=== PATIENT | female | born 2000 | race Caucasian/White ===

== ENCOUNTER 2022-06-03 03:13 | Inpatient (IN) ==
[2022-06-03 04:57] LABS: Basophils # (auto) 0.05 K/uL (0-0.2); Basophils % (auto) 0.7 %; Eosinophils % (auto) 2.9 %; Hematocrit (blood only) 35.3 % (34.1-44.9); Hemoglobin 12.3 g/dl (12.0-16.0); Immature Granulocytes # (auto) 0.01 K/uL (0.00-0.02); Immature Granulocytes % (auto) 0.1 %; Lymphocytes # (auto) 2.97 K/uL (1.2-3.4); Lymphocytes % (auto) 42.6 %; Mean Corpuscular Hemoglobin 32.5 pg (25.0-34.0); Mean Corpuscular Hgb Conc 34.8 g/dL (32.0-36.0); Mean Corpuscular Volume 93.4 fL (80.0-100.0); Mean Platelet Volume 9.6 fL (9.4-12.3); Monocytes # (auto) 0.53 K/uL (0.24-0.82); Monocytes % (auto) 7.6 %; Neutrophils # (auto) 3.21 K/uL (1.4-6.5); Neutrophils % (auto) 46.1 %; Platelet Count 261 K/uL (130-400); RDW Coefficient of Variation 12.5 % (11.5-14.5); RDW Standard Deviation 42.3 fL (36.4-46.3); Red Blood Count 3.78 M/uL (3.93-5.22); White Blood Count 6.97 K/ul (4.8-10.8)
[2022-06-03 05:04] LABS: Pregnancy Test, Urine Negative (Negative)
[2022-06-03 05:07] LABS: Acetaminophen < 3 ug/ml (10-30); Albumin Globulin Ratio 1.3 (0.9-2); Albumin Level 4.4 gm/dl (3.4-5.0); Bilirubin,Total 0.7 mg/dl (0.2-1.0); Calcium 8.9 mg/dl (8.5-10.1); Creatinine Clr Calc Pharmacy 73.6 ml/min; Est GFR (African American) 103.9 ml/min; Est GFR (Non-African American) 89.6 ml/min; Globulin 3.4 gm/dl (2.5-4.0); Potassium 3.4 mmol/L (3.5-5.1); Salicylate < 3.0 mg/dl (3.0-30); Total Protein 7.8 gm/dl (6.0-8.3)
--- NOTE | 2022-06-03 06:57 | Emergency Department Note ---
Impression & Plan Suicide attempt by drug overdose, Alcohol intoxication, Self-injurious behavior Case was signed out to doctor Muriel awaiting psychiatric evaluation ED Provider Note NAME: MAXWELL MONTES AGE: 21 SEX: F ARRIVES VIA: Ambulance INFORMANT: Patient ED PROVIDER(S): Gayathri Moraes DO CHIEF COMPLAINT: Intentional Ooverdose PLAN: Disposition: The case will be signed out to Dr. Llamas at change of shift Condition: Stable MEDICAL DECISION MAKING: This is a 21-year-old female patient who took an intentional overdose in a suicide attempt. The patient took over 100 mg of Lexapro and drank alcohol. Patient used a knife to cut her right wrist multiple times. Patient admits to benito barnhart. She denies any specific trigger for this overdose. She does not have a therapist or see a psychiatrist. She has had 1 previous overdose attempt. The patient will be medically cleared at 9 AM and will be evaluated by the ED psychiatric touring production manager. She has a 302 petitioned by the police but is willing to sign herself in voluntarily for inpatient psychiatric care. The case will be signed out to the oncoming physician. Triage Nursing notes reviewed and agree with them. Vital Signs: reviewed and remarkable for no significant abnormalities Differential diagnosis: Alcohol intoxication, intentional overdose, suicide attempt, self-mutilation Diagnostics interpreted by me: ECG: Normal sinus rhythm at a rate of [address] segment elevation or signs of ischemia. Cardiac Monitoring: Sinus bradycardia at a rate of 59 Laboratory studies: See below Consultation: Poison Control Center HPI: 21/F arrives for evaluation of overdose. The patient describes a constant level of depression but drank some alcohol tonight and became increasingly d epressed and took an overdose of her Lexapro. She describes taking approximately 20 tabs which was close to 100 mg of the Lexapro. She has a previous history of overdose attempt by taking her mother's blood pressure medication when she was a garrett in high school. ROS: See above HPI for pertinent positives & negatives. A total of 10 systems reviewed and were otherwise negative. PAST MEDICAL HISTORY:Depression PAST SURGICAL HISTORY:See Below FAMILY HISTORY:See Below SOCIAL HISTORY:The patient is a student at [employer] and plays soccer; she admits to alcohol and marijuana use. HOME MEDICATIONS:See list ALLERGIES:None VITALS:See Below PHYSICAL EXAMINATION: HEENT: Head - normocephalic and atraumatic. Pupils are equal, round, and reactive to light. Extraocular eye muscles are intact, and sclera are anicteric. Nose - moist nasal mucosa without discharge. Mouth - moist buccal mucosa. Oropharynx is nonerythematous and there is no tonsillar exudate or edema noted. Neck: Supple; no cervical lymphadenopathy or nuchal rigidity Heart: Regular rate and rhythm. There is a normal S1 and S2 with no murmurs, clicks, or gallops appreciated. Lungs: Clear to auscultation bilaterally with no wheezes, rales, or rhonchi. Abdomen: Soft, completely nontender, nondistended, with good bowel sounds. There are no palpable pulsatile masses or hepatosplenomegaly. There is no guarding, rigidity, or rebound noted. Extremities: No evidence of cyanosis, clubbing, or edema. There are easily palpable peripheral pulses. Skin: warm and dry with good turgor and no rashes. Psych: The patient appears depressed with a flat affect. She admits to being s uicidal and attempted to kill herself. taking an overdose of Lexapro and alcohol. ED COURSE: Times/Reassessments: 0345: The patient was evaluated in room C4. A complete history and physical was performed. Laboratory studies were drawn as above. An order was placed for continuous cardiac monitoring. The patient was in a sinus bradycardia at a rate of 59. The patient will be watched closely until she is sober and the effects of the Lexapro have worn off and then she will be evaluated by our ED psychiatric touring production manager. She will require inpatient psychiatric care for attempted suicide. Patient gave me permission to discuss the case with her parents. I did contact her father by phone and the patient's mother was on her way here. Once the patient's mother arrived at the bedside, I discussed the case with her and the patient. Gayathri Moraes, DO Past Med/Surg History Medical History No significant past medical history Social History Smoking Status: Current some day smoker Tobacco Type: E-cigarettes / Vaping Preferred Language: Albanian Feels Safe at Home: Yes Allergies Allergies Allergy/AdvReac Type Severity Reaction Status Date / Time No Known Allergies Allergy Verified 06/03/22 13:31 Home Meds Home Medications Medication Instructions Recorded Confirmed escitalopram oxalate 5 mg tablet 5 mg PO DAILY 06/03/22 06/03/22 Previous Rx's Medication Instructions Recorded mupirocin 2 % topical ointment 1 applic topical BID #22 grams 05/23/22 Results & Data (ED) Vital Signs Vital Signs - 24 hr 06/03/22 03:22 06/03/22 03:40 06/03/22 04:32 Temperature 36.7 C Temperature Source Temporal Artery Scan Pulse Rate 61 70 57 L Pulse Rate [Apical] Pulse Rate from SpO2 Sensor Pulse Rhythm Regular Pulse Rhythm [Apical] Pulse Strength [Apical] Respiratory Rate 16 20 22 Respiratory Effort / Characteristics Non-Labored Spontaneous Respiratory Depth Normal Respiratory Pattern Regular Blood Pressure 134/84 134/84 Blood Pressure [Right Arm] Blood Pressure Mean 100 100 Blood Pressure Mean [Right Arm] Blood Pressure Position [Right Arm] Pulse Oximetry 98 97 95 Oxygen Delivery Method Room Air Room Air Room Air Sepsis Recent Fever Within 48 Hours No Sepsis New/Unexplained Change in Mental Status No Sepsis Action Taken by Nursing No Action Required 06/03/22 04:33 06/03/22 06:13 06/03/22 05:00 Temperature Temperature Source Pulse Rate 59 L Pulse Rate [Apical] 57 L 61 Pulse Rate from SpO2 Sensor 60 Pulse Rhythm Pulse Rhythm [Apical] Pulse Strength [Apical] Respiratory Rate 23 21 22 Respiratory Effort / Characteristics Non-Labored Spontaneous Non-Labored Spontaneous Respiratory Depth Normal Normal Respiratory Pattern Regular Regular Blood Pressure Blood Pressure [Right Arm] 103/67 Blood Pressure Mean Blood Pressure Mean [Right Arm] 79 Blood Pressure Position [Right Arm] Left Lateral Pulse Oximetry 95 95 94 Oxygen Delivery Method Room Air Room Air Room Air Sepsis Recent Fever Within 48 Hours Sepsis New/Unexplained Change in Mental Status Sepsis Action Taken by Nursing 06/03/22 06:00 06/03/22 06:13 06/03/22 08:00 Temperature Temperature Source Pulse Rate 53 L 59 L Pulse Rate [Apical] 62 Pulse Rate from SpO2 Sensor 54 L 60 Pulse Rhythm Pulse Rhythm [Apical] Regular Pulse Strength [Apical] Normal Respiratory Rate 21 22 18 Respiratory Effort / Characteristics Non-Labored Respiratory Depth Normal Respiratory Pattern Regular Blood Pressure 103/67 Blood Pressure [Right Arm] 130/87 Blood Pressure Mean 79 Blood Pressure Mean [Right Arm] 101 Blood Pressure Position [Right Arm] Lying Pulse Oximetry 95 95 96 Oxygen Delivery Method Room Air Room Air Sepsis Recent Fever Within 48 Hours Sepsis New/Unexplained Change in Mental Status Sepsis Action Taken by Nursing Laboratory Data Result diagrams: 06/03/22 03:33 06/03/22 03:33 Lab Results 06/03/22 06/03/22 06/03/22 Range/Units 03:33 03:33 03:33 WBC 6.97 (4.8-10.8) K/ul RBC 3.78 L (3.93-5.22) M/uL Hgb 12.3 (12.0-16.0) g/dl Hct 35.3 (34.1-44.9) % MCV 93.4 (80.0-100.0) fL MCH 32.5 (25.0-34.0) pg MCHC 34.8 (32.0-36.0) g/dL RDW Std Deviation 42.3 (36.4-46.3) fL RDW Coeff of Khalif 12.5 (11.5-14.5) % Plt Count 261 (130-400) K/uL MPV 9.6 (9.4-12.3) fL Immature Gran % (Auto) 0.1 % Neut % (Auto) 46.1 % Lymph % (Auto) 42.6 % Potter % (Auto) 7.6 % Eos % (Auto) 2.9 % Baso % (Auto) 0.7 % Neut # (Auto) 3.21 (1.4-6.5) K/uL Lymph # (Auto) 2.97 (1.2-3.4) K/uL Potter # (Auto) 0.53 (0.24-0.82) K/uL Eos # (Auto) 0.20 (0-0.50) K/uL Baso # (Auto) 0.05 (0-0.2) K/uL Immature Gran # (Auto) 0.01 (0.00-0.02) K/uL Sodium 142 (136-145) mmol/L Potassium 3.4 L (3.5-5.1) mmol/L Chloride 107 (98-107) mmol/L Carbon Dioxide 28 (21-32) mmol/L Anion Gap 7 (3-11) BUN 11 (6-23) mg/dl Creatinine 0.92 (0.6-1.2) mg/dl Est Cr Clr Drug Dosing 73.6 ml/min Est GFR ( Amer) 103.9 ml/min Est GFR (Non-Af Amer) 89.6 ml/min BUN/Creatinine Ratio 12.0 (10-20) Glucose 88 (70-99(Fasting)) mg/dl Calcium 8.9 (8.5-10.1) mg/dl Total Bilirubin 0.7 (0.2-1.0) mg/dl AST 37 (13-39) U/L ALT 23 (7-52) U/L Alkaline Phosphatase 49 (34-104) U/L Total Protein 7.8 (6.0-8.3) gm/dl Albumin 4.4 (3.4-5.0) gm/dl Globulin 3.4 (2.5-4.0) gm/dl Albumin/Globulin Ratio 1.3 (0.9-2) TSH (0.300-4.500) uIu/ml Urine Test (Negative) Salicylates < 3.0 L (3.0-30) mg/dl Urine Opiates Screen (Neg) Ur Methadone, Qual (Neg) Acetaminophen < 3 L (10-30) ug/ml Urine Barbiturates (Neg) Ur Phencyclidine (PCP) (Neg) U Amphetamin/Meth Scrn (Neg) MDMA (Ecstasy) Screen (Neg) U Benzodiazepines Scrn (Neg) Ur Cocaine Metabolite (Neg) U Marijuana (THC) Screen (Neg) Ethyl Alcohol mg/dL (<10.0) mg/dl SARS-CoV-2, RNA, NAAT (NEGATIVE) 06/03/22 06/03/22 06/03/22 Range/Units 03:33 03:33 04:29 WBC (4.8-10.8) K/ul RBC (3.93-5.22) M/uL Hgb (12.0-16.0) g/dl Hct (34.1-44.9) % MCV (80.0-100.0) fL MCH (25.0-34.0) pg MCHC (32.0-36.0) g/dL RDW Std Deviation (36.4-46.3) fL RDW Coeff of Khalif (11.5-14.5) % Plt Count (130-400) K/uL MPV (9.4-12.3) fL Immature Gran % (Auto) % Neut % (Auto) % Lymph % (Auto) % Potter % (Auto) % Eos % (Auto) % Baso % (Auto) % Neut # (Auto) (1.4-6.5) K/uL Lymph # (Auto) (1.2-3.4) K/uL Potter # (Auto) (0.24-0.82) K/uL Eos # (Auto) (0-0.50) K/uL Baso # (Auto) (0-0.2) K/uL Immature Gran # (Auto) (0.00-0.02) K/uL Sodium (136-145) mmol/L Potassium (3.5-5.1) mmol/L Chloride (98-107) mmol/L Carbon Dioxide (21-32) mmol/L Anion Gap (3-11) BUN (6-23) mg/dl Creatinine (0.6-1.2) mg/dl Est Cr Clr Drug Dosing ml/min Est GFR ( Amer) ml/min Est GFR (Non-Af Amer) ml/min BUN/Creatinine Ratio (10-20) Glucose (70-99(Fasting)) mg/dl Calcium (8.5-10.1) mg/dl Total Bilirubin (0.2-1.0) mg/dl AST (13-39) U/L ALT (7-52) U/L Alkaline Phosphatase (34-104) U/L Total Protein (6.0-8.3) gm/dl Albumin (3.4-5.0) gm/dl Globulin (2.5-4.0) gm/dl Albumin/Globulin Ratio (0.9-2) TSH 0.970 (0.300-4.500) uIu/ml Urine Test (Negative) Salicylates (3.0-30) mg/dl Urine Opiates Screen (Neg) Ur Methadone, Qual (Neg) Acetaminophen (10-30) ug/ml Urine Barbiturates (Neg) Ur Phencyclidine (PCP) (Neg) U Amphetamin/Meth Scrn (Neg) MDMA (Ecstasy) Screen (Neg) U Benzodiazepines Scrn (Neg) Ur Cocaine Metabolite (Neg) U Marijuana (THC) Screen (Neg) Ethyl Alcohol mg/dL 173.9 H (<10.0) mg/dl SARS-CoV-2, RNA, NAAT NEGATIVE (NEGATIVE) 06/03/22 06/03/22 Range/Units 04:52 04:52 WBC (4.8-10.8) K/ul RBC (3.93-5.22) M/uL Hgb (12.0-16.0) g/dl Hct (34.1-44.9) % MCV (80.0-100.0) fL MCH (25.0-34.0) pg MCHC (32.0-36.0) g/dL RDW Std Deviation (36.4-46.3) fL RDW Coeff of Khalif (11.5-14.5) % Plt Count (130-400) K/uL MPV (9.4-12.3) fL Immature Gran % (Auto) % Neut % (Auto) % Lymph % (Auto) % Potter % (Auto) % Eos % (Auto) % Baso % (Auto) % Neut # (Auto) (1.4-6.5) K/uL Lymph # (Auto) (1.2-3.4) K/uL Potter # (Auto) (0.24-0.82) K/uL Eos # (Auto) (0-0.50) K/uL Baso # (Auto) (0-0.2) K/uL Immature Gran # (Auto) (0.00-0.02) K/uL Sodium (136-145) mmol/L Potassium (3.5-5.1) mmol/L Chloride (98-107) mmol/L Carbon Dioxide (21-32) mmol/L Anion Gap (3-11) BUN (6-23) mg/dl Creatinine (0.6-1.2) mg/dl Est Cr Clr Drug Dosing ml/min Est GFR ( Amer) ml/min Est GFR (Non-Af Amer) ml/min BUN/Creatinine Ratio (10-20) Glucose (70-99(Fasting)) mg/dl Calcium (8.5-10.1) mg/dl Total Bilirubin (0.2-1.0) mg/dl AST (13-39) U/L ALT (7-52) U/L Alkaline Phosphatase (34-104) U/L Total Protein (6.0-8.3) gm/dl Albumin (3.4-5.0) gm/dl Globulin (2.5-4.0) gm/dl Albumin/Globulin Ratio (0.9-2) TSH (0.300-4.500) uIu/ml Urine Test Negative (Negative) Salicylates (3.0-30) mg/dl Urine Opiates Screen Neg (Neg) Ur Methadone, Qual Neg (Neg) Acetaminophen (10-30) ug/ml Urine Barbiturates Neg (Neg) Ur Phencyclidine (PCP) Neg (Neg) U Amphetamin/Meth Scrn Neg (Neg) MDMA (Ecstasy) Screen Neg (Neg) U Benzodiazepines Scrn Neg (Neg) Ur Cocaine Metabolite Neg (Neg) U Marijuana (THC) Screen Pos H (Neg) Ethyl Alcohol mg/dL (<10.0) mg/dl SARS-CoV-2, RNA, NAAT (NEGATIVE) Administered Medications Discontinued Medications Miscellaneous Information (Patient's Allergy Info Needs Entered) 1 each N/A Q2H [place] Stop: 07/03/22 13:29 Last Admin: 06/03/22 13:30 Dose: 1 each Documented By: HNB Discharge Plan Visit Data Chief Complaint: Mental Health Evaluation Stated Complaint: OVERDOSE ED Provider: Matthew Llamas Discharge Problem: Suicide attempt by drug overdose, Alcohol intoxication, Self-injurious behavior Patient Disposition: Admitted As Inpatient Discharge Instructions Interventions: ED Discharge Assessment Last Done: 06/03/22 14:33 : Alcohol intoxication Qualifiers: Complication of substance-induced condition: with unspecified complication Qualified Code(s): F10.929 - Alcohol use, unspecified with intoxication, un specified
--- NOTE | 2022-06-03 08:50 | Emergency Department Note ---
ED Visit Note The patient was taken in signout from Dr. Moraes at the change of shift. Please see that note for details. The patient was pending mental health evaluation after SI with overdose. Patient was evaluated by [facility]. She was excepted voluntarily for inpatient treatment. .
[2022-06-03 10:49] LABS: Amphetamines+Metham, Urine Neg (Neg); Barbiturates, Urine Neg (Neg); Benzodiazepine, Urine Neg (Neg); Cocaine, Urine Neg (Neg); MDMA (Ecstacy), Urine Neg (Neg); Methadone, Urine Neg (Neg); Opiate, Urine Neg (Neg); Phencyclidine, Urine Neg (Neg)
[2022-06-03] MEDS ORDERED: MAGNESIUM HYDROXIDE SUSP 30 ML UDC PO PRN (13:03)
[2022-06-03] MEDS ORDERED: hydrOXYzine HCl 25 MG TAB PO PRN ×2 (13:03)
[2022-06-03] MEDS ORDERED: BISMUTH SUBSALICYLATE LIQD 236 ML PO PRN (13:03)
[2022-06-03] MEDS ORDERED: SODIUM CHLORIDE 0.65% NA SOLN 45 ML (OCEAN) PRN (13:03)
[2022-06-03] MEDS ORDERED: ALUMINUM/MAGNESIUM SUSP 30 ML UDC PO PRN (13:03)
[2022-06-03] MEDS ORDERED: ACETAMINOPHEN 325 MG TAB PO PRN (13:03)
[2022-06-03] MEDS ORDERED: Patient's ALLERGY Info needs ENTERED SCH (13:30)
--- NOTE | 2022-06-03 23:03 | Electrocardiogram Report ---
Test Reason : Blood Pressure : / mmHG Vent. Rate : 061 BPM Atrial Rate : 061 BPM P-R Int : 158 ms QRS Dur : 082 ms QT Int : 460 ms P-R-T Axes : 075 083 060 degrees QTc Int : 463 ms Poor data quality, interpretation may be adversely affected Normal sinus rhythm with sinus arrhythmia Normal ECG No previous ECGs available Confirmed by Jim Metzger ([id number]) on 06/03/2022 11:03:10 PM Referred By: Confirmed By:Jim Metzger
--- NOTE | 2022-06-04 09:44 | History & Physical ---
Date of Service June 04, 2022 Impression / Recommendations Leny Figueredo is a 21 yo female with a history of depression who presents with recurrent SI and recent SIB while binge drinking who presents s/p significant Lexapro ingestion. (1) Major depression: (2) Suicide attempt by drug overdose: (3) Self-injurious behavior: (4) Alcohol abuse: Plan The patient was admitted to the [facility] ([facility]) on q15 min checks (behavioral with suicide precautions) for safety. The patient will participate in group, recreational, and milieu therapies and will be offered additional individual and family sessions as clinically appropriate. She is still having residual effects of OD so will not address another antidepressant trial until tomorrow, Vistaril prn as standard. Brief intervention for alcohol abuse as above. Inventory Assets Strengths: intelligent, active Needs: outpatient therapy, decrease alcohol use Suicide Risk Level Suicide Risk Level: High-Moderate (q15 min suicide checks) Risk Factors Assessment : Yes Do You Have Access To A Gun?: No Health Problems: No Mental Health Diagnoses: Yes Previous Attempt: Yes Previous Psychiatric Hospitalization: No Protective Factors Assessment Employed: No Stable Relationships: Yes Supportive Family: Yes Psychiatric History Identifying Data MAXWELL MONTES is a 21-year-old F, [employer] from [employer], has a history of a suicide attempt in high school, and was admitted on 06/03/22 13:03 on a 201 voluntary commitment s/p Lexapro OD. Chief Complaint 100 mg of Lexapro while intoxicated History of Present Illness Patient presented to ED s/p Lexapro OD, reportedly impulsive during an argument with a roommate. She also has a history of SIB and had made some superficial cuts on her legs 2 days prior. 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 Sleep and appetite has been disrupted in that utilizing 100 mg Bendadryl. She has a strong family hx of ED and in fact her twin sister did inpatient ED treatment last year at this exact same time. She denies a history of heide but does report some possible disinhibition while drinking. She denies related to SSRI with medication as "when I'm in a good mood it's not an issue" but she does drink repeatedly recently to "Must black out" and will then make comments about self harm. This has occurred several times at home as well and resulted in her mother calling the police once during an argument. As far as ongoing resolution of her OD she felt very jittery yesterday and is still having some hand tremor but denies N/V/D/LLOYD, etc. Past Psychiatric History Previous Psych History: [facility] in [facility]--only attended 2 sessions? Current Psychiatric Diagnosis: MDD Outpatient Services: meds per PCP office Previous Psych Admissions: none Do You Have Access To A Gun?: No History of Previous Suicide Attempt: Yes (OD on mom's BP meds as a teen, only recently disclosed) Past Medication Trials: Lexapro since summer, Benadryl Past Head Trauma/Neuro History History of Concussion/Seizure: Yes (high school soccer, denies postconcussive synd) Allergies Allergy/AdvReac Type Severity Reaction Status Date / Time No Known Allergies Allergy Verified 06/03/22 13:31 Home Medications Medication Instructions Recorded Confirmed Type mupirocin 2 % topical ointment 1 applic topical BID #22 grams 05/23/22 Rx escitalopram oxalate 5 mg tablet 5 mg PO DAILY 06/03/22 06/03/22 History Family History Family History of: Depression (2 sisters on antidepressants with ED as well) and Anxiety (believes father has OCD) Family Mental Health History Comment: Uncle had severe eating disorder and from drug/alochol use at age of 33 when patient was a sophmore in highschool. Alcohol History Hx of Alcohol Use Over the Past 12 Months: Yes (beer/liqour every weekend, last ingestion 06/02) AUDIT Total Score: 16 The patient's AUDIT score suggests problematic drinking ([place] WHO). Brief intervention was offered and accepted. Intervention was greater than 5 min in length and included assessing readiness to quit, advice on how to reduce or abstain from alcohol, and to set a specific goal for this hospitalization. process worker will also assist in anticipating barriers to sobriety and in p roblem-solving for solutions to those problems while arranging for referral to appropriate treatment. The patient is in precontemplation stage with regards to transtheoretical model of change. The patient is advised to decrease alcohol consumption due to depressant effects and risk of interaction with prescription medications. Smoking Use Have You Smoked or Used Tobacco Products in the Last 30 Days: No Smoking Status: Never smoker Substance History Hx of Prescription Med Misuse Over the Past 12 Months: Yes (OD attempt on lexapro 06/02) Hx of Over the Counter Med Misuse Over the Past 12 Months: No Hx of Inhalent Misuse Over the Past 12 Months: No Hx of Organic Substance Use Over the Past 12 Months: Yes (marijuana use ocassionally.) Hx of Illegal Substances/Street Drug Use Over Past 12 Months: No Problems as a Result of Past Substance Use: Attempted Suicide Personal History Living Arrangements: Assisted Living Childhood: twin sister and 2 younger sisters 18 yo (also twins) Highest Grade Completed: Some College (nutrition major) Employment Status: Student Marital Status: Single Number Of Children: 0 Beliefs That Will Affect Care: None Current Legal Problems: No Hx Legal Problems: No Hx Traumatic Life Events: No Patient History Medical History No significant past medical history Social History Smoking Status: Never smoker Tobacco Type: E-cigarettes / Vaping Preferred Language: Estonian Communication Ability: Effective Siding Mechanic Required: No Beliefs That Will Affect Care: None Feels Safe at Home: Yes Assistive Devices: Glasses Review of Systems Review of Systems: All systems reviewed & are unremarkable except as noted in HPI & below Physical Exam Psychiatric: Orientation: alert and oriented x 3 Apperance: appropriately dressed and appropriately groomed Eye Contact: good eye contact Motor Behavior: no abnormal motor movements Speech: normal rate/rhythm/volume of speech Affect: + depressed affect Mood: + depressed mood Thought Process: goal directed thought process Thought Content: reality based without delusions Suicidal Thoughts: denies suicidal plan and denies suicidal intent; + reports suicidal thoughts (intermittent, "I have to get my shit together.") Homicidal Thoughts: denies homicidal thoughts Hallucinations: no auditory hallucinations and no visual hallucinations Cognition: attention grossly intact and language grossly intact Estimated Intelligence: consistent with education level Insight: + limited insight Judgement: + limited judgement Vital Signs (Past 24 Hours): Last Vital Signs Temp 36.7 C 06/04/22 06:30 Pulse 61 06/04/22 06:31 Resp 16 06/04/22 06:30 BP 126/82 06/04/22 06:31 Pulse Ox 99 06/03/22 16:34 O2 Del Method 06/03/22 16:34 Exam Statement: A physical exam was performed in the ED by Dr. Moraes for the purposes of medical clearance. I accept that physical as correct and adequate for the purposes of the inpatient physical exam. Results & Data ([facility]) Laboratory Results Laboratory Results - last 24 hr 06/03/22 06/03/22 04:52 04:52 Urine Opiates Screen Neg Ur Methadone, Qual Neg Urine Barbiturates Neg Ur Phencyclidine (PCP) Neg U Amphetamin/Meth Scrn Neg MDMA (Ecstasy) Screen Neg U Benzodiazepines Scrn Neg Ur Cocaine Metabolite Neg U Marijuana (THC) Screen Pos H U Marijuana THC Carboxy Pending Drug Screen Comment Pending Current Inpatient Medications Current Inpatient Medications: Current Inpatient Medications Acetaminophen (Acetaminophen 325 Mg Tab) 650 mg PO Q4H PRN PRN Reason: Headache or Minor Fever Stop: 07/03/22 13:02 Al Hydrox/Mg Hydrox/Simethicone (Aluminum/Magnesium Susp 30 Ml Udc) 30 ml PO Q4H PRN PRN Reason: GI Upset Stop: 07/03/22 13:02 Bismuth Subsalicylate (Bismuth Subsalicylate Liqd 236 Ml) 15 ml PO PRN PRN PRN Reason: Loose Stool Stop: 07/03/22 13:02 Hydroxyzine HCl (Hydroxyzine Hcl 25 Mg Tab) 50 mg PO HSZ PRN PRN Reason: Insomnia Stop: 07/03/22 13:02 Hydroxyzine HCl (Hydroxyzine Hcl 25 Mg Tab) 25 mg PO Q4H PRN PRN Reason: Anxiety Stop: 07/03/22 13:02 Magnesium Hydroxide (Magnesium Hydroxide Susp 30 Ml Udc) 30 ml PO DAILY PRN PRN Reason: Constipation Stop: 07/03/22 13:02 Sodium Chloride (Sodium Chloride 0.65% Na Soln 45 Ml ([place]rill)) 1 - 2 sprays NA PRN PRN PRN Reason: Nasal Dryness/Congestion Stop: 07/03/22 13:02
[2022-06-05 10:47] LABS: Marijuana Quant, GCMS Urine 23 ng/mL (<5)
--- NOTE | 2022-06-05 12:55 | Psychiatric Progress Note ---
Date of Service June 05, 2022 Impression / Recommendations Impression Bea is a 21 yo female with a history of depression who presents with recurrent SI and recent SIB while binge drinking who presents s/p significant Lexapro ingestion. 06/05/22: reviewed that for now she does not meet criteria for bipolar disorder but does not exclude in differential. Any neuropsych testing should be done as outpatient after she is recovered from this depressive episode. Mother was agreeable with trial of Zoloft and recs as listed. (1) Major depression: (2) Suicide attempt by drug overdose: (3) Self-injurious behavior: (4) Alcohol abuse: Plan 06/05/22: Risks/benefits/alternatives reviewed re: antidepressants for the treatment of depression and/or anxiety. Discussion included but was not limited to FDA warnings re: suicidality in adolescents and young adults. The patient agreed to a trial of Zoloft 25 mg this hs with titration. 06/04/22: The patient was [facility] on q15 min checks (behavioral with suicide precautions) for safety. The patient will participate in group, recreational, and milieu therapies and will be offered additional individual and family sessions as clinically appropriate. She is still having residual effects of OD so will not address another antidepressant trial until tomorrow, Vistaril prn as standard. Brief intervention for alcohol abuse as above. Inventory Assets Strengths: intelligent, active Needs: outpatient therapy, decrease alcohol use Suicide Risk Level Suicide Risk Level: High-Moderate (q15 min suicide checks) Risk Factors Assessment : Yes Do You Have Access To A Gun?: No Health Problems: No Mental Health Diagnoses: Yes Previous Attempt: Yes Previous Psychiatric Hospitalization: No Protective Factors Assessment Employed: No Stable Relationships: Yes Supportive Family: Yes Interval History Identifying Information MAXWELL MONTES is a 21-year-old F, [employer] from [place], has a history of a suicide attempt in high school, and was admitted on 06/03/22 13:03 on a 201 voluntary commitment s/p Lexapro OD. Chief Complaint "I feel some better today." Review of Systems Sleep Information Total Hours of Sleep: 8.75 Meal Information Percent Meal Consumed - Breakfast: 90 Percent Meal Consumed - Lunch: 80 Percent Meal Consumed - Dinner: 70 Nutrition Comment: Refused to get out of bed to eat but got up late and ate 90 percent Subjective Subjective Patient was seen & assessed and interval progress reviewed with nursing and social work. Slept alot yesterday. Tremor has essentially resolved. Patient to have family meeting today to discuss return home for period of safety/more treatment prior to return to school. I spoke with mother with patient's permission. Mother expressed concerns about possible post concussive/ADHD contributing to presentation if not bipolar spectrum disorder. There is no family hx of bipolar and she does feel patient was "much more even" this summer on Lexapro. She doesn't feel it contributed to the OD but we reviewed potential disinhibiting effects with ETOH and she is aware that patient uses benadryl and MJ for sleep. Sleep issues have been ongoing since onset of menses and denies any periods of clear heide/hypomania but when depressed will sleep/withdraw for several days at a time then "come out of it." She will work out, be away from the house alot so potential increased goal directed behaviors. Has been prescribed Zoloft in the past and a sister does well on it but patient reportedly only took 2 pills so not full trial. She would rather retry than go back on Lexapro given the OD and my discussion of need to make sure not disinhibted with ETOH either way with medication and to avoid sleep aides. Physical Exam Psychiatric Orientation: alert and oriented x 3 Apperance: appropriately dressed and appropriately groomed Eye Contact: good eye contact Motor Behavior: no abnormal motor movements Speech: normal rate/rhythm/volume of speech Affect: + depressed affect Mood: + depressed mood Thought Process: goal directed thought process Thought Content: reality based without delusions Suicidal Thoughts: denies suicidal thoughts, denies suicidal plan and denies suicidal intent Homicidal Thoughts: denies homicidal thoughts Hallucinations: no auditory hallucinations and no visual hallucinations Cognition: attention grossly intact and language grossly intact Estimated Intelligence: consistent with education level Insight: + limited insight Judgement: + limited judgement Vital Signs (Past 24 Hours) Last Vital Signs Temp 36.5 C 06/05/22 06:36 Pulse 60 06/05/22 06:36 Resp 16 06/05/22 06:36 BP 111/67 06/05/22 06:36 Pulse Ox 99 06/03/22 16:34 O2 Del Method 06/03/22 16:34 Results & Data ([facility]) Laboratory Results Laboratory Results - last 24 hr 06/03/22 04:52 U Marijuana THC Carboxy 23 H Drug Screen Comment SEE NOTE Current Inpatient Medications Current Inpatient Medications: Current Inpatient Medications Acetaminophen (Acetaminophen 325 Mg Tab) 650 mg PO Q4H PRN PRN Reason: Headache or Minor Fever Stop: 07/03/22 13:02 Al Hydrox/Mg Hydrox/Simethicone (Aluminum/Magnesium Susp 30 Ml Udc) 30 ml PO Q4H PRN PRN Reason: GI Upset Stop: 07/03/22 13:02 Bismuth Subsalicylate (Bismuth Subsalicylate Liqd 236 Ml) 15 ml PO PRN PRN PRN Reason: Loose Stool Stop: 07/03/22 13:02 Hydroxyzine HCl (Hydroxyzine Hcl 25 Mg Tab) 50 mg PO HSZ PRN PRN Reason: Insomnia Stop: 07/03/22 13:02 Hydroxyzine HCl (Hydroxyzine Hcl 25 Mg Tab) 25 mg PO Q4H PRN PRN Reason: Anxiety Stop: 07/03/22 13:02 Magnesium Hydroxide (Magnesium Hydroxide Susp 30 Ml Udc) 30 ml PO DAILY PRN PRN Reason: Constipation Stop: 07/03/22 13:02 Sertraline HCl (Sertraline Hcl 50 Mg Tablet) 25 mg PO HS [place] Stop: 07/05/22 21:59 Sodium Chloride (Sodium Chloride 0.65% Na Soln 45 Ml ([place])) 1 - 2 sprays NA PRN PRN PRN Reason: Nasal Dryness/Congestion Stop: 07/03/22 13:02 Mental Health & Subst Abuse Tx Therapist [facility]ist: [facility] Post Discharge Appointments Primary Care Physician Name Of Family Doctor: ANTOINE
[2022-06-05] MEDS ORDERED: SERTRALINE HCL 50 MG TABLET PO SCH (22:00)
--- NOTE | 2022-06-06 10:29 | Psychiatric Progress Note ---
Date of Service June 06, 2022 Impression / Recommendations Impression Bea is a 21 yo female with a history of depression who presents with recurrent SI and recent SIB while binge drinking who presents s/p significant Lexapro ingestion. 06/06/22: tolerating Zoloft and family meetings (1) Major depression: (2) Suicide attempt by drug overdose: (3) Self-injurious behavior: (4) Alcohol abuse: Plan 06/06/22: titrate Zoloft 50 mg po qhs. 06/05/22: Risks/benefits/alternatives reviewed re: antidepressants for the treatment of depression and/or anxiety. Discussion included but was not limited to FDA warnings re: suicidality in adolescents and young adults. The patient agreed to a trial of Zoloft 25 mg this hs with titration. 06/04/22: The patient was admitted to the [facility]) on q15 min checks (behavioral with suicide precautions) for safety. The patient will participate in group, recreational, and milieu therapies and will be offered additional individual and family sessions as clinically appropriate. She is still having residual effects of OD so will not address another antidepressant trial until tomorrow, Vistaril prn as standard. Brief intervention for alcohol abuse as above. Inventory Assets Strengths: intelligent, active Needs: outpatient therapy, decrease alcohol use Suicide Risk Level Suicide Risk Level: Moderate (q15 min suicide checks) Risk Factors Assessment : Yes Do You Have Access To A Gun?: No Health Problems: No Mental Health Diagnoses: Yes Previous Attempt: Yes Previous Psychiatric Hospitalization: No Protective Factors Assessment Employed: No Stable Relationships: Yes Supportive Family: Yes Interval History Identifying Information MAXWELL MONTES is a 21-year-old F, [employer] from [place], has a history of a suicide attempt in high school, and was admitted on 06/03/22 13:03 on a 201 voluntary commitment s/p Lexapro OD. Chief Complaint "I'm good, just tired." Review of Systems Sleep Information Total Hours of Sleep: 5.5 Meal Information Percent Meal Consumed - Breakfast: 90 Percent Meal Consumed - Lunch: 0 Percent Meal Consumed - Dinner: 80 Subjective Subjective Patient was seen & assessed and interval progress reviewed with treatment team. Had 2 family sessions thus far re: return home with plan for 1-2 weeks of partial/IOP prior to return to campus. Patient is tolerating Zoloft 1st dose and is interested in titration to standard starting dose. Physical Exam Psychiatric Orientation: + not alert Apperance: + disheveled Eye Contact: + fair eye contact Motor Behavior: no abnormal motor movements Speech: normal rate/rhythm/volume of speech Affect: + depressed affect Mood: + depressed mood Thought Process: goal directed thought process Thought Content: reality based without delusions Suicidal Thoughts: denies suicidal thoughts, denies suicidal plan and denies suicidal intent Homicidal Thoughts: denies homicidal thoughts Hallucinations: no auditory hallucinations and no visual hallucinations Cognition: language grossly intact; + attention not intact Vital Signs (Past 24 Hours) Last Vital Signs Temp 36.7 C 06/06/22 06:38 Pulse 61 06/06/22 06:39 Resp 16 06/06/22 06:38 BP 95/58 L 06/06/22 06:39 Pulse Ox 99 06/03/22 16:34 O2 Del Method 06/03/22 16:34 Results & Data ([facility]) Laboratory Results Laboratory Results - last 24 hr 06/03/22 04:52 U Marijuana THC Carboxy 23 H Drug Screen Comment SEE NOTE Current Inpatient Medications Current Inpatient Medications: Current Inpatient Medications Acetaminophen (Acetaminophen 325 Mg Tab) 650 mg PO Q4H PRN PRN Reason: Headache or Minor Fever Stop: 07/03/22 13:02 Al Hydrox/Mg Hydrox/Simethicone (Aluminum/Magnesium Susp 30 Ml Udc) 30 ml PO Q4H PRN PRN Reason: GI Upset Stop: 07/03/22 13:02 Bismuth Subsalicylate (Bismuth Subsalicylate Liqd 236 Ml) 15 ml PO PRN PRN PRN Reason: Loose Stool Stop: 07/03/22 13:02 Hydroxyzine HCl (Hydroxyzine Hcl 25 Mg Tab) 50 mg PO HSZ PRN PRN Reason: Insomnia Stop: 07/03/22 13:02 Hydroxyzine HCl (Hydroxyzine Hcl 25 Mg Tab) 25 mg PO Q4H PRN PRN Reason: Anxiety Stop: 07/03/22 13:02 Magnesium Hydroxide (Magnesium Hydroxide Susp 30 Ml Udc) 30 ml PO DAILY PRN PRN Reason: Constipation Stop: 07/03/22 13:02 Sertraline HCl (Sertraline Hcl 50 Mg Tablet) 25 mg PO HS [place] Stop: 07/05/22 21:59 Last Admin: 06/05/22 21:23 Dose: 25 mg Sodium Chloride (Sodium Chloride 0.65% Na Soln 45 Ml ([place])) 1 - 2 sprays NA PRN PRN PRN Reason: Nasal Dryness/Congestion Stop: 07/03/22 13:02 Mental Health & Subst Abuse Tx Therapist [facility]: [facility] Post Discharge Appointments Primary Care Physician Name Of Family Doctor: ANTOINE
[2022-06-06] MEDS: SERTRALINE HCL 50 MG TABLET PO SCH (21:35)
--- NOTE | 2022-06-07 09:22 | Psychiatric Progress Note ---
Date of Service June 07, 2022 Impression / Recommendations Leny Figueredo is a 21 yo female with a history of depression who presents with recurrent SI and recent SIB while binge drinking who presents s/p significant Lexapro ingestion. Diagnostically consistent with MDD, mood improving now and willing to engage with outpatient intensive program. 06/07/22: reviewed interim progress by Dr. Tomas, tolerating increased dose of sertraline without side effects, mood improving, bright affect with interactions. (1) Major depression: (2) Suicide attempt by drug overdose: (3) Self-injurious behavior: (4) Alcohol use disorder: Plan 06/07/22: Continue with sertraline 50mg po qhs and current treatment plan. 06/06/22: titrate Zoloft 50 mg po qhs. 06/05/22: Risks/benefits/alternatives reviewed re: antidepressants for the treatment of depression and/or anxiety. Discussion included but was not limited to FDA warnings re: suicidality in adolescents and young adults. The patient agreed to a trial of Zoloft 25 mg this hs with titration. 06/04/22: The patient was admitted to the [facility] ([facility]) on q15 min checks (behavioral with suicide precautions) for safety. The patient will participate in group, recreational, and milieu therapies and will be offered additional individual and family sessions as clinically appropriate. She is still having residual effects of OD so will not address another antidepressant trial until tomorrow, Vistaril prn as standard. Brief intervention for alcohol abuse as above. Inventory Assets Strengths: intelligent, active Needs: outpatient therapy, decrease alcohol use Suicide Risk Level Suicide Risk Level: Moderate (q15 min suicide checks) Suicide Risk Level Comments: Suicide attempt prior to admission but able to safety contract, no longer with SI and mood improving Risk Factors Assessment : Yes Do You Have Access To A Gun?: No Health Problems: No Mental Health Diagnoses: Yes Previous Attempt: Yes Previous Psychiatric Hospitalization: No Protective Factors Assessment Employed: No Stable Relationships: Yes Supportive Family: Yes Interval History Identifying Information MAXWELL MONTES is a 21-year-old F, [employer] from [place], has a history of a suicide attempt in high school, and was admitted on 06/03/22 13:03 on a 201 voluntary commitment s/p Lexapro OD. Chief Complaint "I'm enjoying my book a lot". Review of Systems Sleep Information Total Hours of Sleep: 7.25 Meal Information Percent Meal Consumed - Breakfast: 0 Percent Meal Consumed - Lunch: 80 Percent Meal Consumed - Dinner: 100 Nutrition Comment: Patient asked to have her meal placed in fridge Subjective Subjective Patient was seen & assessed and interval progress reviewed with treatment team nursing and social work. Isolative to her room but has been awake and reading. Today reports her mood is "good" and denies SI. Reading a book she's enjoying and plans to watch the [employer] game this afternoon. Denies any side effects from increased dose of sertraline, likes taking this at night. Slept well, had some awakenings but feels rested. Physical Exam Psychiatric Orientation: oriented x 3 Apperance: appropriately dressed and appropriately groomed Eye Contact: good eye contact Motor Behavior: no abnormal motor movements Speech: normal rate/rhythm/volume of speech Affect: euthymic affect Mood: no depressed mood and no anxious mood Thought Process: goal directed thought process Thought Content: reality based without delusions Suicidal Thoughts: denies suicidal thoughts Homicidal Thoughts: denies homicidal thoughts Hallucinations: no auditory hallucinations and no visual hallucinations Estimated Intelligence: consistent with education level Insight: + fair insight Judgement: + fair judgement Vital Signs (Past 24 Hours) Last Vital Signs Temp 36.4 C 06/07/22 06:00 Pulse 78 06/07/22 06:13 Resp 18 06/07/22 06:00 BP 92/57 L 06/07/22 06:13 Pulse Ox 99 06/03/22 16:34 O2 Del Method 06/03/22 16:34 Results & Data ([facility]) Current Inpatient Medications Current Inpatient Medications: Current Inpatient Medications Acetaminophen (Acetaminophen 325 Mg Tab) 650 mg PO Q4H PRN PRN Reason: Headache or Minor Fever Stop: 07/03/22 13:02 Al Hydrox/Mg Hydrox/Simethicone (Aluminum/Magnesium Susp 30 Ml Udc) 30 ml PO Q4H PRN PRN Reason: GI Upset Stop: 07/03/22 13:02 Bismuth Subsalicylate (Bismuth Subsalicylate Liqd 236 Ml) 15 ml PO PRN PRN PRN Reason: Loose Stool Stop: 07/03/22 13:02 Hydroxyzine HCl (Hydroxyzine Hcl 25 Mg Tab) 50 mg PO HSZ PRN PRN Reason: Insomnia Stop: 07/03/22 13:02 Hydroxyzine HCl (Hydroxyzine Hcl 25 Mg Tab) 25 mg PO Q4H PRN PRN Reason: Anxiety Stop: 07/03/22 13:02 Magnesium Hydroxide (Magnesium Hydroxide Susp 30 Ml Udc) 30 ml PO DAILY PRN PRN Reason: Constipation Stop: 07/03/22 13:02 Sertraline HCl (Sertraline Hcl 50 Mg Tablet) 50 mg PO HS [place] Stop: 07/06/22 21:59 Last Admin: 06/06/22 21:35 Dose: 50 mg Sodium Chloride (Sodium Chloride 0.65% Na Soln 45 Ml ([place])) 1 - 2 sprays NA PRN PRN PRN Reason: Nasal Dryness/Congestion Stop: 07/03/22 13:02 Mental Health & Subst Abuse Tx Psychiatrist Name of Psychiatrist: [facility] *will be seeing Coreen Iyer PA-C* Psychiatrist's Date of Appointment with Psychiatrist: 06/12/22 Time of Appointment with Psychiatrist: 9:40am Psychiatric Appointment Comment: [address] [employer] [facility] [employer] [facility] [place] [id number] Therapist Name of Therapist: [facility] (partial day program) Therapist's Date of Therapist Appointment: 06/11/22 Time of Therapist Appointment: arrive by 12:45 for 1-2:30pm intake Therapy Appointment Comment: [address], [place] [id number] Post Discharge Appointments Primary Care Physician Name Of Family Doctor: [facility]- Ana Laura Rendon Primary Care Provider Appointment Comment: [address] [facility] [place] [address] Contact Information Discharge Discharge Address: [address] [place], [place] [address] [id number]
[2022-06-07] MEDS: SERTRALINE HCL 50 MG TABLET PO SCH (20:30)
--- NOTE | 2022-06-08 08:48 | Discharge Summary ---
Date of Service June 08, 2022 History of Present Illness Patient presented to ED s/p Gaby ROBERTS, reportedly impulsive during an argument with a roommate. She also has a history of SIB and had made some superficial cuts on her legs 2 days prior. 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 Sleep and appetite has been disrupted in that utilizing 100 mg Bendadryl. She has a strong family hx of ED and in fact her twin sister did inpatient ED treatment last year at this exact same time. She denies a history of heide but does report some possible disinhibition while drinking. She denies related to SSRI with medication as "when I'm in a good mood it's not an issue" but she does drink repeatedly recently to "Must black out" and will then make comments about self harm. This has occurred several times at home as well and resulted in her mother calling the police once during an argument. As far as ongoing resolution of her OD she felt very jittery yesterday and is still having some hand tremor but denies N/V/D/LLOYD, etc. Physical Exam Vital Signs (Past 24 Hours) Last Vital Signs Temp 36.7 C 06/08/22 06:00 Pulse 62 06/08/22 06:22 Resp 18 06/08/22 06:00 BP 103/66 06/08/22 06:22 Pulse Ox 99 06/03/22 16:34 O2 Del Method 06/03/22 16:34 See admission H&P and DOD summary. Principal Diagnosis Major Depressive Disorder, recurrent Psychiatric Data See daily stay summary. In short, patient was engaged with the social/therapeutic milieu of the unit, safety was maintained and the patient was cooperative with care. Medication changes included discontinuation of escitalopram, initiation of sertraline to 50mg qd and they tolerated this well. She was also given an outpatient script for hydroxyzine 25 mg BID prn for anxiety/insomnia given that she at times has increased anxiety with class assignments or exams and at times struggles to fall asleep. Discussed risks, benefits and alternatives. She consented to start hydroxyzine in the outpatient setting. Reviewed side effects including but not limited to: sedation, fatigue, dizziness, to use caution before driving/operating machinery or using before an exam until she knows how it will effect her. A family session was held and safety plan was completed prior to discharge. She actively and insightfully participated in safety planning and in discussions about ways to seek support and recognizing warning signs and utilizing coping skills. Reviewed mobile apps that could be used for additional ways to have their safety plan and contacts easily available should thoughts of SI re-emerge in the future. Reviewed importance of seeking emergency care should SI intensify, worsen or should they feel unsafe in the future which they agree to do. On the day of discharge she stated her mood was "good" and remained future- oriented including seeing her family, being at home, returning to [employer] after she completes her PHP and engaging in aftercare appointments for PHP and with her PCP and for [employer] student care and advocacy. Day of Discharge Assessment Today the patient voices readiness for discharge. They note improvement in mood and anxiety. They deny thoughts of harm to self or others. Thoughts are organized and they are clinically improved from admission. There is no evidence of psychosis. They improved in the hospital with support and medication adjustments. They agree to take medications as prescribed and keep follow-up appointments. At the time of the discharge they are deemed to be stable and appropriate for outpatient level of care. They are not deemed to be at imminent risk of harm to self or others. They are aware of emergency and crisis services. Knows to call 911 or go to nearest emergency care center if in a crisis which cannot be handled as an outpatient. Transition of Care Transition Of Care Record: was reviewed with the patient Advance Directives Advance Directives Information Provided: Yes Advance Directives: No Mental Health Advance Directive: No Advance Directives on File: No Living Will: No Power of Pot Builder: No Advance Directives Reason:: Declines as Mental Health Visit. Suicide Risk Level Suicide Risk Level Comments: Acute risk is low given improvement in mood and denial of SI, lack of access to lethal means, plan to avoid substance use, improvement in sleep, hopefulness. Chronic risk is moderate given periods of impulsivity, prior attempt, hx self- harm, emotional reactivity, mood disorder but also with protective factors including supportive family, close friends, maritime engineer student. Counseled on ways to reduce acute and chronic risk including engaging with outpatient partial hospitalization program, using safety plan if needed, utilizing supports, taking medication, and using coping skills. Modifiable risk factors of SI and depression were addressed during hospitalization through development of new coping skills, family meeting, safety planning, and medication adjustments. 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) Stable Relationships: Yes Supportive Family: Yes Tobacco Cessation at Discharge Tobacco Cessation Medication Prescribed at Discharge: Offered & Pt Refused Discharge Data Lab Results 06/03/22 06/03/22 06/03/22 03:33 03:33 03:33 WBC 6.97 RBC 3.78 L Hgb 12.3 Hct 35.3 MCV 93.4 MCH 32.5 MCHC 34.8 RDW Std Deviation 42.3 RDW Coeff of Khalif 12.5 Plt Count 261 MPV 9.6 Immature Gran % (Auto) 0.1 Neut % (Auto) 46.1 Lymph % (Auto) 42.6 Dupage % (Auto) 7.6 Eos % (Auto) 2.9 Baso % (Auto) 0.7 Neut # (Auto) 3.21 Lymph # (Auto) 2.97 Dupage # (Auto) 0.53 Eos # (Auto) 0.20 Baso # (Auto) 0.05 Immature Gran # (Auto) 0.01 Sodium 142 Potassium 3.4 L Chloride 107 Carbon Dioxide 28 Anion Gap 7 BUN 11 Creatinine 0.92 Est Cr Clr Drug Dosing 73.6 Est GFR ( Amer) 103.9 Est GFR (Non-Af Amer) 89.6 BUN/Creatinine Ratio 12.0 Glucose 88 Calcium 8.9 Total Bilirubin 0.7 AST 37 ALT 23 Alkaline Phosphatase 49 Total Protein 7.8 Albumin 4.4 Globulin 3.4 Albumin/Globulin Ratio 1.3 TSH Urine Test Salicylates < 3.0 L Urine Opiates Screen Ur Methadone, Qual Acetaminophen < 3 L Urine Barbiturates Ur Phencyclidine (PCP) U Amphetamin/Meth Scrn MDMA (Ecstasy) Screen U Benzodiazepines Scrn Ur Cocaine Metabolite U Marijuana (THC) Screen U Marijuana THC Carboxy Drug Screen Comment Ethyl Alcohol mg/dL SARS-CoV-2, RNA, NAAT 06/03/22 06/03/22 06/03/22 03:33 03:33 04:29 WBC RBC Hgb Hct MCV MCH MCHC RDW Std Deviation RDW Coeff of Khalif Plt Count MPV Immature Gran % (Auto) Neut % (Auto) Lymph % (Auto) Dup[place] % (Auto) Eos % (Auto) Baso % (Auto) Neut # (Auto) Lymph # (Auto) Dupage # (Auto) Eos # (Auto) Baso # (Auto) Immature Gran # (Auto) Sodium Potassium Chloride Carbon Dioxide Anion Gap BUN Creatinine Est Cr Clr Drug Dosing Est GFR ( Amer) Est GFR (Non-Af Amer) BUN/Creatinine Ratio Glucose Calcium Total Bilirubin AST ALT Alkaline Phosphatase Total Protein Albumin Globulin Albumin/Globulin Ratio TSH 0.970 Urine Test Salicylates Urine Opiates Screen Ur Methadone, Qual Acetaminophen Urine Barbiturates Ur Phencyclidine (PCP) U Amphetamin/Meth Scrn MDMA (Ecstasy) Screen U Benzodiazepines Scrn Ur Cocaine Metabolite U Marijuana (THC) Screen U Marijuana THC Carboxy Drug Screen Comment Ethyl Alcohol mg/dL 173.9 H SARS-CoV-2, RNA, NAAT NEGATIVE 06/03/22 06/03/22 06/03/22 04:52 04:52 04:52 WBC RBC Hgb Hct MCV MCH MCHC RDW Std Deviation RDW Coeff of Khalif Plt Count MPV Immature Gran % (Auto) Neut % (Auto) Lymph % (Auto) Dup[place] % (Auto) Eos % (Auto) Baso % (Auto) Neut # (Auto) Lymph # (Auto) Dup[place] # (Auto) Eos # (Auto) Baso # (Auto) Immature Gran # (Auto) Sodium Potassium Chloride Carbon Dioxide Anion Gap BUN Creatinine Est Cr Clr Drug Dosing Est GFR ( Amer) Est GFR (Non-Af Amer) BUN/Creatinine Ratio Glucose Calcium Total Bilirubin AST ALT Alkaline Phosphatase Total Protein Albumin Globulin Albumin/Globulin Ratio TSH Urine Test Negative Salicylates Urine Opiates Screen Neg Ur Methadone, Qual Neg Acetaminophen Urine Barbiturates Neg Ur Phencyclidine (PCP) Neg U Amphetamin/Meth Scrn Neg MDMA (Ecstasy) Screen Neg U Benzodiazepines Scrn Neg Ur Cocaine Metabolite Neg U Marijuana (THC) Screen Pos H U Marijuana THC Carboxy 23 H Drug Screen Comment SEE NOTE Ethyl Alcohol mg/dL SARS-CoV-2, RNA, NAAT Hospital Course (1) Major depression: (2) Suicide attempt by drug overdose: (3) Self-injurious behavior: (4) Alcohol use disorder: Plan 06/07/22: Continue with sertraline 50mg po qhs and current treatment plan. 06/06/22: titrate Zoloft 50 mg po qhs. 06/05/22: Risks/benefits/alternatives reviewed re: antidepressants for the treatment of depression and/or anxiety. Discussion included but was not limited to FDA warnings re: suicidality in adolescents and young adults. The patient agreed to a trial of Zoloft 25 mg this hs with titration. 06/04/22: The patient was admitted to the [facility] ([facility] mental health unit) on q15 min checks (behavioral with suicide precautions) for safety. The patient will participate in group, recreational, and milieu therapies and will be offered additional individual and family sessions as clinically appropriate. She is still having residual effects of OD so will not address another antidepressant trial until tomorrow, Vistaril prn as standard. Brief intervention for alcohol abuse as above. Mental Health & Subst Abuse Tx Psychiatrist Name of Psychiatrist: [facility] *will be seeing Coreen Iyer PA-C* Psychiatrist's Date of Appointment with Psychiatrist: 06/12/22 Time of Appointment with Psychiatrist: 9:40am Psychiatric Appointment Comment: [address] [facility] [place] [address] Therapist Name of Therapist: [facility] (partial day program) Therapist's Date of Therapist Appointment: 06/11/22 Time of Therapist Appointment: arrive by 12:45 for 1-2:30pm intake Therapy Appointment Comment: [address], [place] Post Discharge Appointments Primary Care Physician Name Of Family Doctor: [facility]- Ana Laura Rendon Primary Care Provider Appointment Comment: [address] [facility] [place] [address] Smoking Cessation Counseling Tobacco Cessation Medication Prescribed at Discharge: Offered & Pt Refused Other #1: Name of Aftercare Appointment: Student Care and Advocacy Phone Number of Aftercare Appointment: [phone] Aftercare Appointment Comment: link will be sent via zoom to U email Contact Information Discharge Discharge Address: [address] [place], [place] [address] [address] Discharge Plan Discharge Items Patient Disposition: Home - Self-Care Reason For Visit: MDD Discharge Diagnosis: Major Depressive Disorder, recurrent Activity: Resume your previous activity Non-emergency contact: Primary Care Provider Call non-emergency contact if: you have any medication questions and your symptoms worsen Follow-up/Referrals: [place] [Primary Care Provider] - Diet: Regular Addtl Attending Provider Instructions: Optional mobile apps we discussed: -Suicide safety plan -Virtual Hope Box SPECIAL CARE INSTRUCTIONS: 1. Follow through with your scheduled aftercare appointments. If unable to keep an appointment, please call to reschedule. 2. Take your medication only as prescribed. Medication should not be changed or stopped without the approval of your doctor. In the event of worsening symptoms or concerns about side effects, contact your doctor immediately. 3. Utilize new healthy coping skills, anger management skills, and stress management skills learned during your hospitalization. Journal feelings and process them with a support person. Identify stressors or situations that may result in relapse, deterioration or inappropriate behaviors and develop a plan to deal with those issues. 4. If your coping skills are ineffective and you are in crisis, contact your outpatient providers for direction. If unable to reach your providers, please call the [facility] CRISIS LINE AT , go to the [facility] walk-in center at [address], [address], [place], or go to the closest Emergency Room. 5. Avoid alcohol and un-prescribed drugs. 6. You have been provided with the Mental Health Advance Directives Pamphlet for your review. 7. Your condition is stable for discharge to outpatient level of care, but recovery is an ongoing process. Ifthoughts to harm yourself or others return, follow the safety plan developed during your stay. Planning for a safe return home includes securing weapons. Our treatment team recommends weaponsbe removed from the home until your outpatient provider reassesses your progress. In rare cases where the items themselvescannot be removed, guns and ammunitionshould be secured separatelyand keys stored by a reliable personoutside of the home. If you were admitted on an involuntary commitment, the police or other legal authorities may be involved in this process. AFTERCARE APPOINTMENTS: * Please call your insurance company prior to your scheduled appointment to confirm your aftercare providers are covered. Take your insurance information to your appointments. WHO TO CALL AND WHEN: Medical Emergencies: For questions or emergencies related to your hospital stay, please contact the Inpatient Behavioral Health Unit at [phone]. A quality worker is on-call 30/03 for the Behavioral Health Unit for emergencies At any time you feel your situation is an emergency, you may also call 911 immediately. Pending Studies at Discharge: No Stand-Alone Forms: My [facility] Medications and DC Order Prescriptions: New hydroxyzine HCl 25 mg Tablet 25 mg PO BID PRN (Reason: anxiety/insomnia) 30 Days Qty: 60 0RF sertraline 50 mg Tablet 50 mg PO HS 30 Days Qty: 30 0RF Discontinued mupirocin 2 % ointment 1 applic topical BID Qty: 22 1RF escitalopram oxalate 5 mg tablet 5 mg PO DAILY Discharge Orders: Discharge Order (Routine); Ordered 06/08/22 Ordered By: Wendy Caldera Admission Data Admit Date/Time: 06/03/22 13:03 Attending Provider: Renetta Tomas Admit Provider: Renetta Tomas Primary Care Provider: [facility] Coding Level of Care Code 93359 D/C day mgmt > 30 min Diagnoses Major depression F32.9 Suicide attempt by drug overdose T50.902A Self-injurious behavior Z72.89 Alcohol use disorder Time Spent (min) 40
== END 2022-06-08 11:08 | disposition home or self-care (01) | DRG 885 ==
LOC: ED 03:13 → 3S 13:03

== ENCOUNTER 2022-07-07 23:35 | Inpatient (IN) ==
[2022-07-08 00:01] LABS: Basophils # (auto) 0.06 K/uL (0-0.2); Basophils % (auto) 0.6 %; Eosinophils # (auto) 0.22 K/uL (0-0.50); Eosinophils % (auto) 2.3 %; Hematocrit (blood only) 35.5 % (34.1-44.9); Hemoglobin 12.5 g/dl (12.0-16.0); Immature Granulocytes # (auto) 0.01 K/uL (0.00-0.02); Immature Granulocytes % (auto) 0.1 %; Lymphocytes # (auto) 3.45 K/uL (1.2-3.4); Lymphocytes % (auto) 35.7 %; Mean Corpuscular Hemoglobin 31.6 pg (25.0-34.0); Mean Corpuscular Hgb Conc 35.2 g/dL (32.0-36.0); Mean Corpuscular Volume 89.6 fL (80.0-100.0); Mean Platelet Volume 9.4 fL (9.4-12.3); Monocytes # (auto) 0.64 K/uL (0.24-0.82); Monocytes % (auto) 6.6 %; Neutrophils # (auto) 5.28 K/uL (1.4-6.5); Neutrophils % (auto) 54.7 %; Platelet Count 222 K/uL (130-400); RDW Coefficient of Variation 11.5 % (11.5-14.5); RDW Standard Deviation 36.9 fL (36.4-46.3); Red Blood Count 3.96 M/uL (3.93-5.22); White Blood Count 9.66 K/ul (4.8-10.8)
--- NOTE | 2022-07-08 00:11 | Emergency Department Note ---
Impression & Plan Suicide attempt by multiple drug overdose The case was signed out to Dr. Trent at change of shift awaiting bed search ED Provider Note NAME: MAXWELL MONTES AGE: 21 SEX: F ARRIVES VIA: Ambulance INFORMANT: Patient ED PROVIDER(S): Gayathri Moraes DO CHIEF COMPLAINT: Suicide attempt PLAN: Disposition: The case was signed out to Dr. Trent at change of shift Condition: Stable MEDICAL DECISION MAKING: This is a 21-year-old female patient who presents to the emergency department after taking an intentional overdose. Patient has a history of depression and took a multidrug overdose in an attempt to kill herself tonight. She denies any precipitating event but described to me that she felt worthless and did not want to live anymore. He patient's roommate came home and found the empty bottles and called 911. The police petitioned a 302 and she was brought to the e mergency department for evaluation. The patient was somewhat hypotensive and required IV crystalloid therapy to maintain systolic blood pressure greater than 90. She was also under the influence of alcohol. She was monitored closely and felt to be medically cleared at 7 AM. I discussed the case with the patient's twin sister who was at the bedside and the patient's mother on the phone. A bed search began at 7 AM for an inpatient psychiatric bed. The case will be signed out to Dr. Trent awaiting bed placement. Triage Nursing notes reviewed and agree with them. Additional history obtained from EMS Prior medical records reviewed Vital Signs: reviewed and remarkable for hypotension Differential diagnosis: Mood disorder, thought disorder, intentional overdose, suicide attempt ER treatment provided: IV normal saline bolus x3 Diagnostics interpreted by me: ECG: Normal sinus rhythm at a rate of [address] segment elevation or signs of ischemia or ectopy; QTC was 461 ms QRS duration was 96 ms Repeat ECG: Normal sinus rhythm at a rate of [address] segment elevation or signs of ischemia. QTC is 499 ms QRS duration is 88 ms. Cardiac Monitoring: Normal sinus rhythm at 61 Laboratory studies: See below Consultation(s): Poison control HPI: arrives for evaluation of overdose. Patient took an intentional ov erdose of 60 hydroxyzine and 6 Zoloft tabs around 20-20. She also drank 7-8 shots of vodka. Patient states that she felt worthless and did not want to live anymore. The patient has had previous suicide attempts. She suffers from chronic depression. She had a recent inpatient psychiatric stay with 2 weeks of intensive outpatient therapy. ROS: See above HPI for pertinent positives & negatives. A total of 10 systems reviewed and were otherwise negative. PAST MEDICAL HISTORY:See Below PAST SURGICAL HISTORY:See Below FAMILY HISTORY:See Below SOCIAL HISTORY:See Below HOME MEDICATIONS:See list ALLERGIES:None VITALS:See Below PHYSICAL EXAMINATION: HEENT: Head - normocephalic and atraumatic. Pupils are equal, round, and reactive to light. Extraocular eye muscles are intact, and sclera are anicteric. Nose - moist nasal mucosa without discharge. Mouth - moist buccal mucosa. Oropharynx is nonerythematous and there is no tonsillar exudate or edema noted. Neck: Supple; no cervical lymphadenopathy or thyromegaly Heart: Regular rate and rhythm. There is a normal S1 and S2 with no murmurs, clicks, or gallops appreciated. Lungs: Clear to auscultation bilaterally with no wheezes, rales, or rhonchi. Abdomen: Soft, completely nontender, nondistended, with good bowel sounds. There are no palpable pulsatile masses or hepatosplenomegaly. There is no guarding, rigidity, or rebound noted. Extremities: No evidence of cyanosis, clubbing, or edema. There are easily palpable peripheral pulses. Skin: warm and dry with good turgor and no rashes. Psych: Patient admits to feeling extremely depressed and suicidal. She took this overdose in an attempt to kill herself. ED COURSE: Times/Reassessments: [id number] patient was evaluated in room B1. Previous electronic medical records were reviewed. An order was placed for continuous cardiac monitoring. The patient was in a normal sinus rhythm at a rate of 61. A twelve-lead EKG was obtained. She was bolused with a liter of normal saline solution. Patient's blood pressure continued to drop and she was given additional liter of normal saline solution. Poison control was contacted. I discussed the case with the patient's twin sister and her mother. Once again, the patient's blood pressure dropped and she was bolused with another liter of crystalloids. Patient was watched closely and blood pressure remained greater than 90. She slept with her roommate and sister at the bedside. She was easily arousable. She was moved from room B1 to room B5. The patient had a repeat EKG which showed normal parameters including heart rate, QTC and QRS. She will be medically cleared at 7 AM and have a full psychiatric evaluation by the ED psychiatric bilingual patient support caseworker. Gayathri Moraes DO Past Med/Surg History Medical History Alcohol intoxication No significant past medical history Self-injurious behavior Suicide attempt by drug overdose Social History Smoking Status: Current some day smoker Tobacco Type: Cigarettes and E-cigarettes / Vaping Preferred Language: Azeri Communication Ability: Effective Manager Assisted Living Required: No Beliefs That Will Affect Care: None Current Living Situation: Other Current Living Situation Comment: student Feels Safe at Home: Yes Assistive Devices: Glasses Allergies Allergies Allergy/AdvReac Type Severity Reaction Status Date / Time No Known Allergies Allergy Verified 06/03/22 13:31 Home Meds Previous Rx's Medication Instructions Recorded hydroxyzine HCl 25 mg tablet 25 mg PO BID PRN anxiety/insomnia 06/08/22 30 days #60 tabs sertraline 50 mg tablet 50 mg PO HS MDD 30 days #30 tabs 06/08/22 Results & Data (ED) Vital Signs Vital Signs - 24 hr 07/07/22 23:59 07/07/22 23:59 07/08/22 00:01 Temperature 36.6 C Temperature Source Oral Pulse Rate 75 Pulse Rate [Apical] 61 Pulse Rhythm Regular Pulse Rhythm [Apical] Regular Pulse Strength Pulse Strength [Apical] Normal Respiratory Rate 18 18 Respiratory Effort / Characteristics Non-Labored Spontaneous Respiratory Depth Normal Respiratory Pattern Regular Blood Pressure Blood Pressure [Right Arm] 100/67 Blood Pressure Mean Blood Pressure Mean [Right Arm] 78 Blood Pressure Position Blood Pressure Position [Right Arm] Semi-fowlers Pulse Oximetry 97 97 97 Oxygen Delivery Method Room Air Room Air Room Air Oxygen Flow Rate 0 Sepsis Recent Fever Within 48 Hours Sepsis New/Unexplained Change in Mental Status Sepsis Action Taken by Nursing 07/07/22 23:33 07/08/22 00:30 07/08/22 01:00 Temperature 36.6 C Temperature Source Oral Pulse Rate 73 Pulse Rate [Apical] 66 76 Pulse Rhythm Regular Pulse Rhythm [Apical] Regular Regular Pulse Strength Normal Pulse Strength [Apical] Normal Normal Respiratory Rate 16 18 17 Respiratory Effort / Characteristics Non-Labored Spontaneous Non-Labored Spontaneous Non-Labored Spontaneous Respiratory Depth Normal Normal Normal Respiratory Pattern Regular Regular Regular Blood Pressure 96/54 L Blood Pressure [Right Arm] 81/44 L 94/60 L Blood Pressure Mean 68 Blood Pressure Mean [Right Arm] 56 71 Blood Pressure Position Lying Blood Pressure Position [Right Arm] Lying Lying Pulse Oximetry 96 96 98 Oxygen Delivery Method Room Air Room Air Room Air Oxygen Flow Rate Sepsis Recent Fever Within 48 Hours No Sepsis New/Unexplained Change in Mental Status No Sepsis Action Taken by Nursing No Action Required 07/08/22 01:37 07/08/22 01:45 07/08/22 02:00 Temperature Temperature Source Pulse Rate Pulse Rate [Apical] 72 70 68 Pulse Rhythm Pulse Rhythm [Apical] Regular Regular Regular Pulse Strength Pulse Strength [Apical] Normal Normal Normal Respiratory Rate 17 18 18 Respiratory Effort / Characteristics Non-Labored Spontaneous Non-Labored Spontaneous Non-Labored Spontaneous Respiratory Depth Normal Normal Normal Respiratory Pattern Regular Regular Regular Blood Pressure Blood Pressure [Right Arm] 77/47 L 80/45 L 89/62 L Blood Pressure Mean Blood Pressure Mean [Right Arm] 57 56 71 Blood Pressure Position Blood Pressure Position [Right Arm] Lying Lying Lying Pulse Oximetry 97 97 97 Oxygen Delivery Method Room Air Room Air Room Air Oxygen Flow Rate Sepsis Recent Fever Within 48 Hours Sepsis New/Unexplained Change in Mental Status Sepsis Action Taken by Nursing 07/08/22 02:15 07/08/22 02:30 07/08/22 02:45 Temperature Temperature Source Pulse Rate Pulse Rate [Apical] 75 79 86 Pulse Rhythm Pulse Rhythm [Apical] Regular Regular Regular Pulse Strength Pulse Strength [Apical] Normal Normal Normal Respiratory Rate 18 18 18 Respiratory Effort / Characteristics Non-Labored Spontaneous Non-Labored Spontaneous Spontaneous Respiratory Depth Normal Normal Respiratory Pattern Regular Regular Regular Blood Pressure Blood Pressure [Right Arm] 88/47 L 98/60 L 93/57 L Blood Pressure Mean Blood Pressure Mean [Right Arm] 60 72 69 Blood Pressure Position Blood Pressure Position [Right Arm] Lying Lying Semi-fowlers Pulse Oximetry 96 96 94 Oxygen Delivery Method Room Air Room Air Room Air Oxygen Flow Rate Sepsis Recent Fever Within 48 Hours Sepsis New/Unexplained Change in Mental Status Sepsis Action Taken by Nursing 07/08/22 03:15 07/08/22 03:30 07/08/22 04:00 Temperature Temperature Source Pulse Rate Pulse Rate [Apical] 89 91 H 87 Pulse Rhythm Pulse Rhythm [Apical] Regular Regular Regular Pulse Strength Pulse Strength [Apical] Normal Normal Normal Respiratory Rate 20 18 18 Respiratory Effort / Characteristics Non-Labored Spontaneous Non-Labored Spontaneous Non-Labored Spontaneous Respiratory Depth Normal Normal Normal Respiratory Pattern Regular Regular Regular Blood Pressure Blood Pressure [Right Arm] 92/38 L 92/45 L 94/48 L Blood Pressure Mean Blood Pressure Mean [Right Arm] 56 60 63 Blood Pressure Position Blood Pressure Position [Right Arm] Lying Lying Lying Pulse Oximetry 93 94 94 Oxygen Delivery Method Room Air Room Air Room Air Oxygen Flow Rate Sepsis Recent Fever Within 48 Hours Sepsis New/Unexplained Change in Mental Status Sepsis Action Taken by Nursing 07/08/22 06:00 07/08/22 08:00 07/08/22 10:00 Temperature 36.8 C 36.8 C Temperature Source Oral Oral Pulse Rate Pulse Rate [Apical] 84 78 58 L Pulse Rhythm Pulse Rhythm [Apical] Regular Regular Pulse Strength Pulse Strength [Apical] Normal Normal Respiratory Rate 18 18 18 Respiratory Effort / Characteristics Non-Labored Spontaneous Spontaneous Respiratory Depth Normal Normal Respiratory Pattern Regular Regular Blood Pressure Blood Pressure [Right Arm] 99/51 L 90/58 L 108/68 Blood Pressure Mean Blood Pressure Mean [Right Arm] 67 68 81 Blood Pressure Position Blood Pressure Position [Right Arm] Lying Pulse Oximetry 94 97 Oxygen Delivery Method Room Air Room Air Oxygen Flow Rate Sepsis Recent Fever Within 48 Hours Sepsis New/Unexplained Change in Mental Status Sepsis Action Taken by Nursing Laboratory Data Result diagrams: 07/07/22 23:45 07/08/22 10:08 Lab Results 07/07/22 07/07/22 07/07/22 Range/Units 23:45 23:45 23:45 WBC 9.66 (4.8-10.8) K/ul RBC 3.96 (3.93-5.22) M/uL Hgb 12.5 (12.0-16.0) g/dl Hct 35.5 (34.1-44.9) % MCV 89.6 (80.0-100.0) fL MCH 31.6 (25.0-34.0) pg MCHC 35.2 (32.0-36.0) g/dL RDW Std Deviation 36.9 (36.4-46.3) fL RDW Coeff of Khalif 11.5 (11.5-14.5) % Plt Count 222 (130-400) K/uL MPV 9.4 (9.4-12.3) fL Immature Gran % (Auto) 0.1 % Neut % (Auto) 54.7 % Lymph % (Auto) 35.7 % [place] % (Auto) 6.6 % Eos % (Auto) 2.3 % Baso % (Auto) 0.6 % Neut # (Auto) 5.28 (1.4-6.5) K/uL Lymph # (Auto) 3.45 H (1.2-3.4) K/uL [place] # (Auto) 0.64 (0.24-0.82) K/uL Eos # (Auto) 0.22 (0-0.50) K/uL Baso # (Auto) 0.06 (0-0.2) K/uL Immature Gran # (Auto) 0.01 (0.00-0.02) K/uL Sodium 143 (136-145) mmol/L Potassium 3.3 L (3.5-5.1) mmol/L Chloride 110 H (98-107) mmol/L Carbon Dioxide 26 (21-32) mmol/L Anion Gap 7 (3-11) BUN 14 (6-23) mg/dl Creatinine 0.83 (0.6-1.2) mg/dl Est Cr Clr Drug Dosing 81.6 ml/min Est GFR ( Amer) 117.7 ml/min Est GFR (Non-Af Amer) 101.5 ml/min BUN/Creatinine Ratio 16.9 (10-20) Glucose 95 (70-99(Fasting)) mg/dl Calcium 9.0 (8.5-10.1) mg/dl Magnesium (1.7-2.4) mg/dl Total Bilirubin 0.5 (0.2-1.0) mg/dl AST 19 (13-39) U/L ALT 12 (7-52) U/L Alkaline Phosphatase 45 (34-104) U/L Total Protein 7.4 (6.0-8.3) gm/dl Albumin 4.3 (3.4-5.0) gm/dl Globulin 3.1 (2.5-4.0) gm/dl Albumin/Globulin Ratio 1.4 (0.9-2) HCG, Qual Negative (Negative) Salicylates (3.0-30) mg/dl Acetaminophen (10-30) ug/ml Ethyl Alcohol mg/dL (<10.0) mg/dl SARS-CoV-2, RNA, NAAT (NEGATIVE) 07/07/22 07/07/22 07/08/22 Range/Units 23:45 23:45 00:03 WBC (4.8-10.8) K/ul RBC (3.93-5.22) M/uL Hgb (12.0-16.0) g/dl Hct (34.1-44.9) % MCV (80.0-100.0) fL MCH (25.0-34.0) pg MCHC (32.0-36.0) g/dL RDW Std Deviation (36.4-46.3) fL RDW Coeff of Khalif (11.5-14.5) % Plt Count (130-400) K/uL MPV (9.4-12.3) fL Immature Gran % (Auto) % Neut % (Auto) % Lymph % (Auto) % [place] % (Auto) % Eos % (Auto) % Baso % (Auto) % Neut # (Auto) (1.4-6.5) K/uL Lymph # (Auto) (1.2-3.4) K/uL [place] # (Auto) (0.24-0.82) K/uL Eos # (Auto) (0-0.50) K/uL Baso # (Auto) (0-0.2) K/uL Immature Gran # (Auto) (0.00-0.02) K/uL Sodium (136-145) mmol/L Potassium (3.5-5.1) mmol/L Chloride (98-107) mmol/L Carbon Dioxide (21-32) mmol/L Anion Gap (3-11) BUN (6-23) mg/dl Creatinine (0.6-1.2) mg/dl Est Cr Clr Drug Dosing ml/min Est GFR ( Amer) ml/min Est GFR (Non-Af Amer) ml/min BUN/Creatinine Ratio (10-20) Glucose (70-99(Fasting)) mg/dl Calcium (8.5-10.1) mg/dl Magnesium (1.7-2.4) mg/dl Total Bilirubin (0.2-1.0) mg/dl AST (13-39) U/L ALT (7-52) U/L Alkaline Phosphatase (34-104) U/L Total Protein (6.0-8.3) gm/dl Albumin (3.4-5.0) gm/dl Globulin (2.5-4.0) gm/dl Albumin/Globulin Ratio (0.9-2) HCG, Qual (Negative) Salicylates < 3.0 L (3.0-30) mg/dl Acetaminophen < 3 L (10-30) ug/ml Ethyl Alcohol mg/dL 260.2 H (<10.0) mg/dl SARS-CoV-2, RNA, NAAT NEGATIVE (NEGATIVE) 07/08/22 07/08/22 Range/Units 10:08 10:08 WBC (4.8-10.8) K/ul RBC (3.93-5.22) M/uL Hgb (12.0-16.0) g/dl Hct (34.1-44.9) % MCV (80.0-100.0) fL MCH (25.0-34.0) pg MCHC (32.0-36.0) g/dL RDW Std Deviation (36.4-46.3) fL RDW Coeff of Khalif (11.5-14.5) % Plt Count (130-400) K/uL MPV (9.4-12.3) fL Immature Gran % (Auto) % Neut % (Auto) % Lymph % (Auto) % [place] % (Auto) % Eos % (Auto) % Baso % (Auto) % Neut # (Auto) (1.4-6.5) K/uL Lymph # (Auto) (1.2-3.4) K/uL [place] # (Auto) (0.24-0.82) K/uL Eos # (Auto) (0-0.50) K/uL Baso # (Auto) (0-0.2) K/uL Immature Gran # (Auto) (0.00-0.02) K/uL Sodium 142 (136-145) mmol/L Potassium 3.8 (3.5-5.1) mmol/L Chloride 113 H (98-107) mmol/L Carbon Dioxide 21 (21-32) mmol/L Anion Gap 8 (3-11) BUN 10 (6-23) mg/dl Creatinine 0.68 (0.6-1.2) mg/dl Est Cr Clr Drug Dosing 99.6 ml/min Est GFR ( Amer) 145.9 ml/min Est GFR (Non-Af Amer) 125.9 ml/min BUN/Creatinine Ratio 14.7 (10-20) Glucose 79 (70-99(Fasting)) mg/dl Calcium 8.0 L (8.5-10.1) mg/dl Magnesium 1.7 1.7 (1.7-2.4) mg/dl Total Bilirubin (0.2-1.0) mg/dl AST (13-39) U/L ALT (7-52) U/L Alkaline Phosphatase (34-104) U/L Total Protein (6.0-8.3) gm/dl Albumin (3.4-5.0) gm/dl Globulin (2.5-4.0) gm/dl Albumin/Globulin Ratio (0.9-2) HCG, Qual (Negative) Salicylates (3.0-30) mg/dl Acetaminophen (10-30) ug/ml Ethyl Alcohol mg/dL (<10.0) mg/dl SARS-CoV-2, RNA, NAAT (NEGATIVE) Administered Medications Famotidine 20 mg/ Syringe 5 mls @ 2.5 mls/min IV Q12 [facility] Stop: 08/07/22 11:29 Last Admin: 07/08/22 11:57 Dose: 2.5 mls/min Documented By: SM Discontinued Medications Sodium Chloride (Nss 1000ml) 1,000 mls @ 999 mls/hr IV .Q1H1M ONE Stop: 07/08/22 02:39 Last Infusion: 07/08/22 02:43 Dose: 0 mls/hr Documented By: Admin: 07/08/22 01:41 Dose: 999 mls/hr Documented By: HERMES Magnesium Sulfate/Dextrose (Magnesium Sulfate / D5w) 1 gm in 100 mls @ 200 mls/hr IV Q30M [facility] Stop: 07/08/22 10:38 Last Infusion: 07/08/22 13:48 Dose: 0 mls/hr Documented By: Admin: 07/08/22 12:46 Dose: 100 mls/hr Documented By: Infusion: 07/08/22 12:45 Dose: 0 mls/hr Documented By: Admin: 07/08/22 11:56 Dose: 200 mls/hr Documented By: MONICA Sodium Chloride (Nss 1000ml) 1,000 mls @ 999 mls/hr IV .Q1H1M ONE Stop: 07/08/22 11:20 Last Infusion: 07/08/22 13:49 Dose: 0 mls/hr Documented By: [facility] Admin: 07/08/22 11:56 Dose: 999 mls/hr Documented By: MONICA Potassium Chloride (K Sai / Wtr) 10 meq in 100 mls @ 100 mls/hr IV Q1H [place]; Protocol Stop: 07/08/22 12:29 Last Infusion: 07/08/22 14:52 Dose: 0 mls/hr Documented By: [facility] Admin: 07/08/22 12:55 Dose: 100 mls/hr Documented By: SARA Metoclopramide HCl (Metoclopramide Hcl Inj 5 Mg/Ml 2 Ml Vial) Confirm Administered Dose 10 mg .ROUTE .STK-MED ONE Stop: 07/08/22 11:37 Last Admin: 07/08/22 11:57 Dose: 10 mg Documented By: Effie Pyridoxine HCl (Pyridoxine Hcl 50 Mg Tab) 100 mg PO ONE ONE Stop: 07/08/22 11:31 Last Admin: 07/08/22 15:34 Dose: 100 mg Documented By: AM Discharge Plan Visit Data Chief Complaint: Overdose (Intentional) Stated Complaint: OVERDOSE - INTENTIONAL ED Provider: Robert Trent Discharge Problem: Suicide attempt by multiple drug overdose Patient Disposition: Admitted As Inpatient Discharge Instructions Interventions: ED Discharge Assessment Last Done: 07/08/22 12:25 : Suicide attempt by multiple drug overdose Qualifiers: Encounter type: initial encounter Qualified Code(s): T50.912A - Poisoning by multiple unspecified drugs, medicaments and biological substances, intentional self-harm, initial encounter
[2022-07-08 00:20] LABS: Pregnancy Test, Serum Negative (Negative)
[2022-07-08 00:28] LABS: Albumin Globulin Ratio 1.4 (0.9-2); Albumin Level 4.3 gm/dl (3.4-5.0); BUN Creatinine Ratio 16.9 (10-20); Bilirubin,Total 0.5 mg/dl (0.2-1.0); Creatinine Clr Calc Pharmacy 81.6 ml/min; Est GFR (African American) 117.7 ml/min; Est GFR (Non-African American) 101.5 ml/min; Globulin 3.1 gm/dl (2.5-4.0); Potassium 3.3 mmol/L (3.5-5.1); Total Protein 7.4 gm/dl (6.0-8.3)
[2022-07-08 01:18] LABS: Acetaminophen < 3 ug/ml (10-30); Salicylate < 3.0 mg/dl (3.0-30)
[2022-07-08] MEDS ORDERED: SODIUM CHLORIDE 0.9% 1000ML 1,000 ML IV ONE ×2 (01:39→10:20)
[2022-07-08] MEDS ORDERED: POTASSIUM CHLORIDE CRTAB 20 MEQ TABCR PO STA (09:40)
[2022-07-08] MEDS ORDERED: METOCLOPRAMIDE HCL INJ 5 MG/ML 2 ML VIAL IV STA (10:20)
--- NOTE | 2022-07-08 10:21 | History & Physical Report ---
Date of Service July 08, 2022 Assessment & Plan (1) Major depression: Plan: Pari is a 21-year-old female with a past medical history of major depression who presents to the ER after a intentional medication overdose with suicidal intention. She took 60x 25 mg hydroxyzine, 6 fluoxetine tablets in addition to alcohol with an admitting medical alcohol level of 260.2 overnight 07/07-. Was initially medically cleared point poison control and was pending behavioral health placement, however repeat EKG showed lengthening QT and has been recommended for telemetry monitoring and magnesium supplementation with continued medical observation. Intentional Overdose with Qtp, active SI 60x 25 mg hydroxyzine, 6 fluoxetine, alcohol 07/07. Ingestion approximately 8:30 PM - Initial EKG 07/07/2022 at 2346 hrs.: Normal sinus rhythm. QTc 461. No ST segment changes. - Repeat EKG 07/08/2022 at 554 hours: Normal sinus rhythm, QTC 499. 2 g IV ordered Magnesium pending Potassium repleted Discussed with poison control. Recommended completing magnesium as above with follow-up EKG and level Will have EKG after magnesium, and then in 4 hours to follow. If QTc closes patient may be medically cleared for BHU transfer at that time At bedside assessment for admission patient awakens easily to voice, is guarding airway although endorses some shortness of breath and is not sure if she could have aspirated. Answers questions appropriately and is at the bedside with her mother CXR ordered for evaluation of potential aspiration, follow SPO2 Suicide precautions Patient continues to endorse active suicidality/SI, 302 pending Discussed with patient and mother at bedside, given second episode within 1 month they would like to pursue inpatient treatment options once medically cleared. Case management, psychiatry consulted DVT prophylaxis: Low risk Diet: Safe tray CODE STATUS: Full code Disposition: Telemetry for QT prolongation and monitoring while on drug washout and mag repletion. May downgrade once QTC normalizes (2) Intentional overdose: (3) QT prolongation: History of Present Illness Primary Care Provider: [facility] Pari is a 21-year-old female with a past medical history of major depression who presents to the ER after a intentional medication overdose with suicidal intention. She took 60x 25 mg hydroxyzine, 6 fluoxetine tablets in addition to alcohol with an admitting medical alcohol level of 260.2 overnight 07/07-2011/1. Was initially medically cleared point poison control and was pending behavioral health placement, however repeat EKG showed lengthening QT and has been recommended for telemetry monitoring and magnesium supplementation with continued medical observation. Patient reports that she took 7-8 shots of vodka, 60 hydroxyzine, and 6 Zoloft tabs around 8:30 PM on 07/07/2022. She reported suicidal intention with chronic depression, and noted she was feeling worthless and did not want to be alive. Prior history of major depressive disorder with inpatient admission 06/04/2022 - 06/08/2022. At that time noted to have low acute risk of stroke, but moderate chronic risk of stroke due to impulsivity, prior attempts, history of self-harm, and mood disorder but with good protective factors including family/friends. She was discharged with follow-up to psychiatry through [facility], therapy with near [facility] partial intensive outpatient day program, and was continued on hydroxyzine twice daily as needed and sertraline 50 mg p.o. nightly. Lexapro was discontinued at that time Initial EKG 07/07/2022 at 2346 hrs.: Normal sinus rhythm. QTc 461. No ST segment changes. Repeat EKG 07/08/2022 at 554 hours: Normal sinus rhythm, QTC 499. In the ER patient did receive 2 L NSS for hypotension. After QT was found to be lengthened magnesium and potassium supplementation were also ordered. She was signed out to the day ER provider who subsequently signed case out to hospitalist provider for admission. At time of admission there is no leukocytosis, hemoglobin is 12.5, sodium is 143, potassium 3.3, glucose is normal, magnesium was pending, COVID-negative. No imaging performed, patient is awake and guarding airway. M-4 hours Last week first week back to [employer]. MDD for 'a very long time' Feels anxiety as a wave of depressive mood which plummets and had strong feelings of worthlessness Support from mother who is with her in the ER and in her twin sister. Roommate Claire came to check on her and found that she had taken hydroxyzine, zoloft, and alcohol. Roommate made her throw Had not expressed SI, but sister was worried Before last month had not had any suicide attempts but February 2021 Davis was drinking and had told her twin sister that she wanted to kill herself, but did not have an attempt at that time. Was seen by a medical center and was referred to crisis at the time and was connect to video therapy. Saw Uziel [facility]rand CLIENT PROFESSIONAL for counseling and had started zoloft at that time but never really took it. Looking at inpatient faciliites specializing in depression after this second attempt. Trying to find a center with matched age group, prior [facility] was a older age group which was not therapeutic for her. History from [facility] is limited as she is somnolent and withdrawn, however at bedside she awakens easily to voice, is guarding airway, converses appropriately before going back to sleep. Does endorse some slight shortness of breath without cough, is not sure if she could have aspirated. Medical History: Reviewed Medications: Reviewed Surgical History: Reviewed Allergies: Reviewed Social History: Social ETOH. Code Status: Full code Allergies Allergy/AdvReac Type Severity Reaction Status Date / Time No Known Allergies Allergy Verified 06/03/22 13:31 Home Medications Medication Instructions Recorded Confirmed Type hydroxyzine HCl 25 mg tablet 25 mg PO BID PRN anxiety/insomnia 06/08/22 07/08/22 Rx 30 days #60 tabs sertraline 50 mg tablet 50 mg PO HS MDD 30 days #30 tabs 06/08/22 07/08/22 Rx Past Med/Surg History Medical History Alcohol intoxication No significant past medical history Self-injurious behavior Suicide attempt by drug overdose Social History Smoking Status: Current some day smoker Tobacco Type: Cigarettes and E-cigarettes / Vaping Preferred Language: Cameroonian Communication Ability: Effective 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 Withdrawn affect. Endorses active SI. HEENT: Atraumatic, normocephalic. Vision/hearing intact. Pulm: CTAB A&P. -wheezes, -rales, -rhonchi. Symmetrical chest rise. No increase in work of breathing. No respiratory distress. Cardiac: RRR, -mrg. Radial pulses intact and symmetrical. ext: warm, dry. Intact. Results & Data Results & Data ([facility]) Vital Signs (Past 12 Hours) Vital Signs Temp Pulse Pulse Resp BP BP Pulse Ox 07/08/22 08:00 36.8 C 78 18 90/58 L 97 07/08/22 06:00 84 18 99/51 L 94 07/08/22 04:00 87 18 94/48 L 94 07/08/22 03:30 91 H 18 92/45 L 94 07/08/22 03:15 89 20 92/38 L 93 07/08/22 02:45 86 18 93/57 L 94 07/08/22 02:30 79 18 98/60 L 96 07/08/22 02:15 75 18 88/47 L 96 07/08/22 02:00 68 18 89/62 L 97 07/08/22 01:45 70 18 80/45 L 97 07/08/22 01:37 72 17 77/47 L 97 07/08/22 01:00 76 17 94/60 L 98 07/08/22 00:30 66 18 81/44 L 96 07/07/22 23:33 36.6 C 73 16 96/54 L 96 07/08/22 00:01 36.6 C 61 18 100/67 97 07/07/22 23:59 75 18 97 07/07/22 23:59 97 O2 Del Method O2 Flow Rate 07/08/22 08:00 Room Air 07/08/22 06:00 Room Air 07/08/22 04:00 Room Air 07/08/22 03:30 Room Air 07/08/22 03:15 Room Air 07/08/22 02:45 Room Air 07/08/22 02:30 Room Air 07/08/22 02:15 Room Air 07/08/22 02:00 Room Air 07/08/22 01:45 Room Air 07/08/22 01:37 Room Air 07/08/22 01:00 Room Air 07/08/22 00:30 Room Air 07/07/22 23:33 Room Air 07/08/22 00:01 Room Air 07/07/22 23:59 Room Air 07/07/22 23:59 Room Air 0 PG Care Time/CCT Total # of Minutes Spent Total Time Spent with Patient: Total time spent is greater than 50% in coordination of care (as documented) at patient's floor/unit and/or counseling patient: Coding Level of Care Code 57734 Initial Inpt Care Lvl 3 Diagnoses Major depression F32.9 Intentional overdose T50.902A QT prolongation R94.31
--- NOTE | 2022-07-08 11:15 | Electrocardiogram Report ---
Test Reason : Blood Pressure : / mmHG Vent. Rate : 065 BPM Atrial Rate : 065 BPM P-R Int : 158 ms QRS Dur : 096 ms QT Int : 444 ms P-R-T Axes : 067 080 048 degrees QTc Int : 461 ms Normal sinus rhythm Normal ECG When compared with ECG of 03-JUN-2022 03:45, No significant change was found Confirmed by Pedro Luis Lai ([id number]) on 07/08/2022 11:14:39 AM Referred By: REFERRED SELF Confirmed By:Sesar Lai
--- NOTE | 2022-07-08 11:19 | Electrocardiogram Report ---
Test Reason : Blood Pressure : / mmHG Vent. Rate : 081 BPM Atrial Rate : 081 BPM P-R Int : 178 ms QRS Dur : 088 ms QT Int : 430 ms P-R-T Axes : 065 087 048 degrees QTc Int : 499 ms Normal sinus rhythm When compared with ECG of 07-JUL-2022 23:46, (unconfirmed) Nonspecific T wave abnormality now evident in Anterior leads Confirmed by Pedro Luis Lai ([id number]) on 07/08/2022 11:19:21 AM Referred By: REFERRED SELF Confirmed By:Sesar Lai
[2022-07-08] MEDS ORDERED: PYRIDOXINE HCL 50 MG TAB PO ONE (11:30)
[2022-07-08] MEDS ORDERED: METOCLOPRAMIDE HCL INJ 5 MG/ML 2 ML VIAL ONE (11:36)
[2022-07-08 11:43] LABS: Appearance Urine Clear (Clear); Bilirubin Urine Negative (Negative); Blood Urine Negative (Negative); Color Urine Yellow; Glucose Urine UA Negative (Negative); Ketones Urine Negative (Negative); Leukocyte Esterase Urine Negative (Negative); Nitrite Urine Negative (Negative); Protein Urine Negative (Negative); Specific Gravity Urine 1.018 (1.000-1.030); Urobilinogen Urine Negative (Negative); pH Urine 5.5 (4.5-7.5)
--- NOTE | 2022-07-08 11:51 | Emergency Department Note ---
ED Visit Note I did receive signout from Dr. Moraes pending reevaluation and disposition. The patient did overdose last evening taking 60 of her 25 mg hydroxyzine alcohol and fluoxetine. The patient was thought to be deemed medically cleared at the time of signout. I did review the patient's EKG which showed worsening QT prolongation. This was discussed with poison control and nursing. Did recommend telemetry. I did order IV magnesium and replete meant of her potassium. Magnesium blood work ordered to check levels. Patient had some vomiting was ordered some Reglan as to avoid worsening her QT prolongation. Patient is awake alert and following commands. I did speak with the mother at bedside as well. I did speak the on-call hospitalist Dr. Pleitez and the patient was admitted to the medicine service. Magnesium 1.7. EKG interpreted by me Normal sinus rhythm, rate of 81, normal AK and QRS, prolonged QT, QT does appear more prolonged from comparison completed on July 07 at 2346. Diagnosis: Overdose Hypokalemia QT prolongation .
[2022-07-08] MEDS: MAGNESIUM SULFATE / D5W 1 GM/100 ML BAG IV SCH ×2 (11:56→12:46)
[2022-07-08] MEDS: FAMOTIDINE 20 MG in SYRINGE 3 ML IV SCH ×2 (11:57→21:30)
[2022-07-08 12:30] LABS: BUN Creatinine Ratio 14.7 (10-20); Creatinine Clr Calc Pharmacy 99.6 ml/min; Est GFR (African American) 145.9 ml/min; Est GFR (Non-African American) 125.9 ml/min; Magnesium 1.7 mg/dl (1.7-2.4); Potassium 3.8 mmol/L (3.5-5.1)
[2022-07-08 12:52] LABS: Amphetamines+Metham, Urine Neg (Neg); Barbiturates, Urine Neg (Neg); Benzodiazepine, Urine Neg (Neg); Cocaine, Urine Neg (Neg); MDMA (Ecstacy), Urine Neg (Neg); Methadone, Urine Neg (Neg); Opiate, Urine Neg (Neg); Phencyclidine, Urine Neg (Neg)
[2022-07-08] MEDS: POTASSIUM CHLORIDE / WTR 10 MEQ/100 ML PLCT IV SCH ×2 (12:55→15:59)
[2022-07-08] MEDS ORDERED: POLYETHYLENE (MIRALAX) 17 GM PACK PO PRN (13:02)
[2022-07-08] MEDS ORDERED: Flu Vaccine (Fluarix) 0.5mL SYR (Standard Dose) IM ONE (17:30)
[2022-07-08 18:27] LABS: BUN Creatinine Ratio 12.5 (10-20); Calcium 7.9 mg/dl (8.5-10.1); Creatinine Clr Calc Pharmacy 105.8 ml/min; Est GFR (African American) 148.9 ml/min; Est GFR (Non-African American) 128.5 ml/min; Magnesium 2.2 mg/dl (1.7-2.4); Potassium 4.1 mmol/L (3.5-5.1)
[2022-07-09 08:05] LABS: Basophils # (auto) 0.04 K/uL (0-0.2); Basophils % (auto) 0.6 %; Eosinophils # (auto) 0.24 K/uL (0-0.50); Eosinophils % (auto) 3.5 %; Hematocrit (blood only) 31.4 % (34.1-44.9); Immature Granulocytes # (auto) 0.01 K/uL (0.00-0.02); Immature Granulocytes % (auto) 0.1 %; Lymphocytes # (auto) 2.62 K/uL (1.2-3.4); Lymphocytes % (auto) 37.7 %; Mean Corpuscular Hemoglobin 31.7 pg (25.0-34.0); Mean Corpuscular Volume 90.5 fL (80.0-100.0); Mean Platelet Volume 9.4 fL (9.4-12.3); Monocytes # (auto) 0.68 K/uL (0.24-0.82); Monocytes % (auto) 9.8 %; Neutrophils # (auto) 3.36 K/uL (1.4-6.5); Neutrophils % (auto) 48.3 %; Platelet Count 192 K/uL (130-400); RDW Coefficient of Variation 11.9 % (11.5-14.5); Red Blood Count 3.47 M/uL (3.93-5.22); White Blood Count 6.95 K/ul (4.8-10.8)
[2022-07-09 08:45] LABS: BUN Creatinine Ratio 17.9 (10-20); Calcium 8.3 mg/dl (8.5-10.1); Creatinine Clr Calc Pharmacy 80.6 ml/min; Est GFR (Non-African American) 100.1 ml/min; Potassium 3.9 mmol/L (3.5-5.1)
[2022-07-09] MEDS: FAMOTIDINE 20 MG in SYRINGE 3 ML IV SCH ×2 (09:29→20:34)
--- NOTE | 2022-07-09 10:52 | Communication Note ---
Date of Service: July 09, 2022 Patient presented following suicide attempt via overdose of medications. She was more alert today and able to meet with psych liason. She will be seen for psychiatric consult within next 24 hours.
--- NOTE | 2022-07-09 13:54 | Electrocardiogram Report ---
Test Reason : Blood Pressure : / mmHG Vent. Rate : 062 BPM Atrial Rate : 062 BPM P-R Int : 170 ms QRS Dur : 086 ms QT Int : 470 ms P-R-T Axes : 060 069 044 degrees QTc Int : 477 ms Normal sinus rhythm Normal ECG When compared with ECG of 08-JUL-2022 05:54, No significant change was found Confirmed by Pedro Luis Lai ([id number]) on 07/09/2022 1:54:27 PM Referred By: REFERRED SELF Confirmed By:Sesar Lai
--- NOTE | 2022-07-09 14:08 | Psychiatric Consultation ---
Date of Consultation July 09, 2022 Impression / Recommendations Impression This is a 21 yo admitted medically following an intentional overdose suicide attempt. Diagnostically consistent with MDD, recurrent, severe and concern for contribution from alcohol use given that depression has worsened while at college. Acute risk of self-harm remains elevated and high given suicide attempt requiring medical admission, major depressive symptoms, history of prior attempts, hopelessness, limited insight, substance use, high psychic distress and regrets being alive. Given elevated risk of harm to self they meet criteria for inpatient psychiatric care for diagnostic clarification, safety /stabilization, development of additional coping skills, medication management and disposition/safety planning once medically stable. If they do not agree to voluntary treatment at that time they will meet criteria for 302 status based on severity of suicide attempt and ongoing modifiable risk factors. At this point she is saying she is agreeable to voluntary treatment, will reassess once medically cleared. (1) Suicide attempt by multiple drug overdose: Encounter type: initial encounter Qualified Code(s): T50.912A - Poisoning by multiple unspecified drugs, medicaments and biological substances, intentional self-harm, initial encounter (2) Major depression: Plan -Continue 1-on-1 for risk of harm to self -Do not discharge or allow to leave AMA -Hold psych medications for now -Once medically cleared plan for psychiatric hospitalization (either 201 or 302 status). 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 Chief Complaint "I'd been thinking about the plan for a few days". History of Present Illness Davis is known to me from her recent admission to [facility] for depression. She was admitted medically after an overdose of her prescribed medications including ~6 tabs of sertraline 50mg, hydroxyzine 25mg ~60 tabs and multiple shots of vodka. She endorses ongoing depression, feels as though her mood worsened while doing partial hospitalization program for two weeks following recent inpatient admission, and then after returning to school last week started to think of plan of overdosing. She denies any specific stressor rather "feeling so depressed". She is regretful of being alive but denies current SI. She is very tired during the interview, but responds to questions with brief answers. Her mother is at bedside throughout, which Davis gave permission for, and she reiterates her concerns about how depressed Davis has gotten and how worried she is about Davis ability to remain safe. She notes Davis did well this summer but since returning to school "keeps getting worse and worse". She was scheduled to start [facility] IOP today. Past Psychiatric History Outpatient Services: [facility] was to start Previous Psych Admissions: [facility] early June 2022 Do You Have Access To A Gun?: No History of Previous Suicide Attempt: Yes Past Medication Trials: lexapro, benadryl Allergies Allergy/AdvReac Type Severity Reaction Status Date / Time No Known Allergies Allergy Verified 06/03/22 13:31 Home Medications Medication Instructions Recorded Confirmed Type hydroxyzine HCl 25 mg tablet 25 mg PO BID PRN anxiety/insomnia 06/08/22 07/08/22 Rx 30 days #60 tabs sertraline 50 mg tablet 50 mg PO HS MDD 30 days #30 tabs 06/08/22 07/08/22 Rx Personal History Childhood: Family lives in [facility] Employment Status: Student Beliefs That Will Affect Care: None Patient History Medical History Alcohol intoxication No significant past medical history Self-injurious behavior Suicide attempt by drug overdose Social History Smoking Status: Current some day smoker Tobacco Type: Cigarettes and E-cigarettes / Vaping Preferred Language: [place] Islander Communication Ability: Effective Director Pharmaceutical Required: No Beliefs That Will Affect Care: None Current Living Situation: Other Current Living Situation Comment: student Feels Safe at Home: Yes Assistive Devices: None Physical Exam Psychiatric: Orientation: alert and oriented x 3 Apperance: appropriately dressed and + disheveled Eye Contact: + poor eye contact Motor Behavior: no abnormal motor movements Speech: + abnormal rate/rhythm/volume of speech (brief, whispers) Affect: + depressed affect and + flat affect Mood: + depressed mood Thought Process: goal directed thought process (very sparse) Thought Content: reality based without delusions Suicidal Thoughts: denies suicidal thoughts (but attempt prior to admin and regrets being alive), denies suicidal plan and denies suicidal intent Homicidal Thoughts: denies homicidal thoughts Hallucinations: no auditory hallucinations and no visual hallucinations Cognition: language grossly intact; + attention not intact Estimated Intelligence: consistent with education level Insight: + limited insight Judgement: + limited judgement Vital Signs (Past 24 Hours): Last Vital Signs Temp 36.8 C 07/09/22 08:00 Pulse 52 L 07/09/22 09:00 Resp 16 07/09/22 08:00 BP 90/58 L 07/09/22 08:00 Pulse Ox 96 07/09/22 08:00 O2 Del Method 07/09/22 08:00 O2 Flow Rate 0 07/07/22 23:59 Review of Systems All systems reviewed & are unremarkable except as noted in HPI & below Results & Data ([facility]) Medications Administered Famotidine 20 mg/ Syringe 5 mls @ 2.5 mls/min IV Q12 [place] Stop: 08/07/22 11:29 Last Admin: 07/09/22 09:29 Dose: 2.5 mls/min Documented By: Admin: 07/08/22 21:30 Dose: 2.5 mls/min Documented By: Admin: 07/08/22 11:57 Dose: 2.5 mls/min Documented By: MONICA Coding Level of Care Code 44290 Inpt Consult Level 4 Diagnoses Suicide attempt by multiple drug overdose T50.912A Encounter type: initial encounter Major depression F32.9 Time Spent (min) 45
--- NOTE | 2022-07-09 15:44 | Hospitalist Progress Note ---
Date of Service July 09, 2022 Assessment & Plan (1) Major depression: Plan: Pari is a 21-year-old female with a past medical history of major depression who presents to the ER after a intentional medication overdose with suicidal intention. She took 60x 25 mg hydroxyzine, 6 fluoxetine tablets in addition to alcohol with an admitting medical alcohol level of 260.2 overnight 07/07-. Was initially medically cleared point poison control and was pending behavioral health placement, however repeat EKG showed lengthening QT and has been recommended for telemetry monitoring and magnesium supplementation with continued medical observation. Intentional Overdose with Qtp, active SI 60x 25 mg hydroxyzine, 6 fluoxetine, alcohol 07/07. Ingestion approximately 8:30 PM - Initial EKG 07/07/2022 at 2346 hrs.: Normal sinus rhythm. QTc 461. No ST segment changes. - Repeat EKG 07/08/2022 at 554 hours: Normal sinus rhythm, QTC 499. 2 g IV ordered Magnesium pending Potassium repleted Discussed with poison control. Recommended completing magnesium as above with follow-up EKG and level -Repeat EKG shows QTc closing 499 to 477. Will repeat EKG tomorrow morning If QTc closes patient may be medically cleared for BHU transfer at that time Suicide precautions Patient continues to endorse active suicidality/SI, 302 pending Continue 1:1 sitter, patient not allowed to sign out AMA -Appreciate psych DVT prophylaxis: Low risk Diet: Safe tray CODE STATUS: Full code Disposition: Telemetry for QT prolongation and monitoring while on drug washout and mag repletion. May downgrade once QTC normalizes (2) Intentional overdose: (3) QT prolongation: Plan possible BHU tomorrow Admission and Anticipated Discharge Date Admission Date: July 08, 2022 Subjective patient seen and examined, feels sleepy, denies chest pain or SOB Review of Systems Review of Systems: All systems reviewed are negative, apart from the ones contained in the history. Physical Exam Physical Exam: The patient is awake, alert and oriented 3, well developed and well nourished, normocephalic and atraumatic, lying in bed and in no acute distress. HEENT--PERRL, EOMI, mucous membranes and oropharynx mildly dry Neck--supple. No JVD. No bruits. Thyroid normal, trachea midline, no adenopathy. Heart--normal S1 and S2. No murmurs, rubs or gallops. Lungs--clear bilaterally, no respiratory distress, no accessory muscle use. Abdomen--normal bowel sounds and soft. Mild epigastric and left sided abdominal pain Extremities--no cyanosis or clubbing. No edema. Dermatologic--normal skin turgor, normal color, no abnormal lymph nodes, no rash. Neurologic--cranial nerves II through XII grossly intact. Rheumatologic--normal range of motion. Psychiatric--normal affect. Results & Data Results & Data ([facility]) Vital Signs (Past 12 Hours) Vital Signs Temp Pulse Pulse Resp BP Pulse Ox Pulse Ox 07/09/22 13:02 99 07/09/22 09:00 52 L 07/09/22 08:00 98.2 F 58 L 16 90/58 L 96 07/09/22 04:00 97.9 F 57 L 16 100/61 98 O2 Del Method O2 Del Method 07/09/22 13:02 Room Air 07/09/22 09:00 07/09/22 08:00 Room Air 07/09/22 04:00 Room Air PG Care Time/CCT Total # of Minutes Spent Total Time Spent with Patient: Total time spent is greater than 50% in coordination of care (as documented) at patient's floor/unit and/or counseling patient: Coding Level of Care Code 54380 Subseq Hosp Care Lvl 2 Diagnoses Major depression F32.9 Intentional overdose T50.902A QT prolongation R94.31 Time Spent (min) 35
[2022-07-10] MEDS: FAMOTIDINE 20 MG in SYRINGE 3 ML IV SCH ×2 (11:36→20:25)
--- NOTE | 2022-07-10 12:05 | Electrocardiogram Report ---
Test Reason : Blood Pressure : / mmHG Vent. Rate : 040 BPM Atrial Rate : 040 BPM P-R Int : 170 ms QRS Dur : 092 ms QT Int : 500 ms P-R-T Axes : 066 080 048 degrees QTc Int : 407 ms Marked sinus bradycardia Abnormal ECG When compared with ECG of 08-JUL-2022 18:27, Vent. rate has decreased BY 22 BPM QT has shortened Confirmed by Pedro Luis Lai ([id number]) on 07/10/2022 12:04:48 PM Referred By: REFERRED SELF Confirmed By:Sesar Lai
--- NOTE | 2022-07-10 12:12 | Psychiatric Progress Note ---
Date of Service July 10, 2022 Impression / Recommendations Impression This is a 21 yo admitted medically following an intentional overdose suicide attempt. Diagnostically consistent with MDD, recurrent, severe and concern for contribution from alcohol use given that depression has worsened while at college. Acute risk of self-harm remains elevated and high given suicide attempt requiring medical admission, major depressive symptoms, history of prior attempts, hopelessness, limited insight, substance use, high psychic distress and regrets being alive. Given elevated risk of harm to self they meet criteria for inpatient psychiatric care for diagnostic clarification, safety/stab ilization, development of additional coping skills, medication management and disposition/safety planning once medically stable. If they do not agree to voluntary treatment at that time they will meet criteria for 302 status based on severity of suicide attempt and ongoing modifiable risk factors. At this point she is saying she is agreeable to voluntary treatment, will reassess once medically cleared. 07/10/22: Davis is now medically stable and agrees to voluntary inpatient treatment, prefers bed search for [facility] hospitals near where she lives when not at college as she plans to withdraw from the rest of the semester. Remains very depressed and in need of inpatient treatment per above. 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 Chief Complaint "Yeah I still regret being alive". Review of Systems Notes stable sleep and appetite, denies pain Subjective Subjective Patient was seen & assessed and interval progress reviewed. Davis is now medically stable per hospitalist provider. She was assessed per 302 warrant and agrees to voluntary treatment. She remains very depressed and tired. Denies any physical symptoms or pain. Cooperative and polite but withdrawn and very flat affect. States her current SI is "lowering a little" but remains regretful of surviving the suicide attempt. Signed ABBE for her mother. Wants to look for inpatient psychiatric placement in [place] area so bed search to begin there. Physical Exam Psychiatric Orientation: alert and oriented x 3 Apperance: appropriately dressed and + disheveled Eye Contact: + fair eye contact Motor Behavior: no abnormal motor movements Speech: + abnormal rate/rhythm/volume of speech (brief, soft) Affect: + depressed affect and + flat affect Mood: + depressed mood Thought Process: goal directed thought process (sparse) Thought Content: reality based without delusions Suicidal Thoughts: denies suicidal plan and denies suicidal intent; + reports suicidal thoughts (and attempt prior to admin and regrets being alive) Homicidal Thoughts: denies homicidal thoughts Hallucinations: no auditory hallucinations and no visual hallucinations Cognition: attention grossly intact and language grossly intact Estimated Intelligence: consistent with education level Insight: + fair insight Judgement: + limited judgement Vital Signs (Past 24 Hours) Last Vital Signs Temp 36.8 C 07/10/22 08:46 Pulse 59 L 07/10/22 08:46 Resp 17 07/10/22 08:46 BP 120/70 07/10/22 08:46 Pulse Ox 97 07/10/22 08:46 O2 Del Method 07/10/22 08:46 O2 Flow Rate 0 07/07/22 23:59 Results & Data ([facility]) Current Inpatient Medications Current Inpatient Medications: Current Inpatient Medications Famotidine 20 mg/ Syringe 5 mls @ 2.5 mls/min IV Q12 [place] Stop: 08/07/22 11:29 Last Admin: 07/10/22 11:36 Dose: 2.5 mls/min Polyethylene Glycol (Polyethylene (Miralax) 17 Gm Pack) 17 gm PO DAILY PRN PRN Reason: Constipation Stop: 08/07/22 13:01 (1) Suicide attempt by multiple drug overdose Encounter type: initial encounter Qualified Code(s): T50.912A - Poisoning by multiple unspecified drugs, medicaments and biological substances, intentional self-harm, initial encounter
--- NOTE | 2022-07-10 15:08 | Hospitalist Progress Note ---
Date of Service July 10, 2022 Assessment & Plan (1) Major depression: Plan: Pari is a 21-year-old female with a past medical history of major depression who presents to the ER after a intentional medication overdose with suicidal intention. She took 60x 25 mg hydroxyzine, 6 fluoxetine tablets in addition to alcohol with an admitting medical alcohol level of 260.2 overnight 07/07-. Was initially medically cleared point poison control and was pending behavioral health placement, however repeat EKG showed lengthening QT and has been recommended for telemetry monitoring and magnesium supplementation with continued medical observation. Intentional Overdose with Qtp, active SI 60x 25 mg hydroxyzine, 6 fluoxetine, alcohol 07/07. Ingestion approximately 8:30 PM - Initial EKG 07/07/2022 at 2346 hrs.: Normal sinus rhythm. QTc 461. No ST segment changes. - Repeat EKG 07/08/2022 at 554 hours: Normal sinus rhythm, QTC 499. 2 g IV ordered Magnesium pending Potassium repleted Discussed with poison control. Recommended completing magnesium as above with follow-up EKG and level -QT has shortened, patient is now medically cleard and stable for transfer Suicide precautions Patient continues to endorse active suicidality/SI, 302 has been deposited by psych Continue 1:1 sitter, patient not allowed to sign out AMA -Appreciate psych DVT prophylaxis: Low risk Diet: Safe tray CODE STATUS: Full code Disposition: medically stable for transfer to inpatient psych (2) Intentional overdose: (3) QT prolongation: Plan possible [facility] tomorrow Admission and Anticipated Discharge Date Admission Date: July 08, 2022 Subjective patient seen and examined, feels sleepy, denies chest pain or SOB Review of Systems Review of Systems: All systems reviewed are negative, apart from the ones contained in the history. Physical Exam Physical Exam: The patient is awake, alert and oriented 3, well developed and well nourished, normocephalic and atraumatic, lying in bed and in no acute distress. HEENT--PERRL, EOMI, mucous membranes and oropharynx mildly dry Neck--supple. No JVD. No bruits. Thyroid normal, trachea midline, no adenopathy. Heart--normal S1 and S2. No murmurs, rubs or gallops. Lungs--clear bilaterally, no respiratory distress, no accessory muscle use. Abdomen--normal bowel sounds and soft. Mild epigastric and left sided abdominal pain Extremities--no cyanosis or clubbing. No edema. Dermatologic--normal skin turgor, normal color, no abnormal lymph nodes, no rash. Neurologic--cranial nerves II through XII grossly intact. Rheumatologic--normal range of motion. Psychiatric--normal affect. Results & Data Results & Data ([facility]) Vital Signs (Past 12 Hours) Vital Signs Temp Pulse Pulse Resp BP BP Pulse Ox 07/10/22 14:08 44 L 07/10/22 13:00 07/10/22 12:38 98.4 F 44 L 16 106/66 97 07/10/22 08:46 98.2 F 59 L 17 120/70 97 Pulse Ox O2 Del Method O2 Del Method 07/10/22 14:08 07/10/22 13:00 96 Room Air 07/10/22 12:38 Room Air 07/10/22 08:46 Room Air PG Care Time/CCT Total # of Minutes Spent Total Time Spent with Patient: Total time spent is greater than 50% in coordination of care (as documented) at patient's floor/unit and/or counseling patient: Coding Level of Care Code 18610 Subseq Hosp Care Lvl 2 Diagnoses Major depression F32.9 Intentional overdose T50.902A QT prolongation R94.31 Time Spent (min) 35
[2022-07-11] MEDS: FAMOTIDINE 20 MG in SYRINGE 3 ML IV SCH ×2 (09:09→19:44)
--- NOTE | 2022-07-11 11:00 | Electrocardiogram Report ---
Test Reason : Blood Pressure : / mmHG Vent. Rate : 050 BPM Atrial Rate : 050 BPM P-R Int : 180 ms QRS Dur : 090 ms QT Int : 510 ms P-R-T Axes : 073 083 060 degrees QTc Int : [address] elevation, consider early repolarization, pericarditis, or injury Abnormal ECG When compared with ECG of 10-JUL-2022 05:20, T wave inversion no longer evident in Anterior leads Nonspecific T wave abnormality now evident in Lateral leads QT has lengthened Confirmed by Pedro Luis Lai ([id number]) on 07/11/2022 11:00:27 AM Referred By: REFERRED SELF Confirmed By:Sesar Lai
--- NOTE | 2022-07-11 12:27 | Psychiatric Progress Note ---
Date of Service July 11, 2022 Impression / Recommendations Impression This is a 21 yo admitted medically following an intentional overdose suicide attempt. Diagnostically consistent with MDD, recurrent, severe and concern for contribution from alcohol use given that depression has worsened while at college. Acute risk of self-harm remains elevated and high given suicide attempt requiring medical admission, major depressive symptoms, history of prior attempts, hopelessness, limited insight, substance use, high psychic distress and regrets being alive. Given elevated risk of harm to self they meet criteria for inpatient psychiatric care for diagnostic clarification, safety/stab ilization, development of additional coping skills, medication management and disposition/safety planning once medically stable. If they do not agree to voluntary treatment at that time they will meet criteria for 302 status based on severity of suicide attempt and ongoing modifiable risk factors. At this point she is saying she is agreeable to voluntary treatment, will reassess once medically cleared. 07/11/22: Davis remains medically stable and agreeable to voluntary inpatient treatment. Continues to prefer bed search focused on [facility] hospitals near where she lives when not at college as she plans to withdraw from the rest of the semester. Remains very depressed and in need of inpatient treatment per above. Repeat EKG and COVID test done last night per request of potential a ccepting facility. 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 Chief Complaint "I'm a little better, having my friends visit always make me feel a little better". Review of Systems Notes sleep well, appetite improving Subjective Subjective Patient was seen & assessed and interval progress reviewed. Feels a bit more energy today, sitting up talking and eating with her friends at bedside. Reviewed orders last night for repeat EKG and COVID test were due to request by potentially accepting facility. She slept well and is starting to eat a bit more. Feels better about being alive today, feels safe currently. Wonders about having a service dog in the future as she notes that having something to take care of might be very helpful when she gets depressed and feels alone as loneliness tends to be a big precipitant for SI for her. Physical Exam Psychiatric Orientation: alert and oriented x 3 Apperance: appropriately dressed and appropriately groomed Eye Contact: good eye contact Motor Behavior: no abnormal motor movements Speech: normal rate/rhythm/volume of speech Affect: + depressed affect Mood: + depressed mood Thought Process: goal directed thought process Thought Content: reality based without delusions Suicidal Thoughts: denies suicidal thoughts (but attempt prior to admin and regrets about being alive), denies suicidal plan and denies suicidal intent Homicidal Thoughts: denies homicidal thoughts Hallucinations: no auditory hallucinations and no visual hallucinations Cognition: attention grossly intact and language grossly intact Estimated Intelligence: consistent with education level Insight: + fair insight Judgement: + limited judgement Vital Signs (Past 24 Hours) Last Vital Signs Temp 36.6 C 07/11/22 08:00 Pulse 56 L 07/11/22 08:00 Resp 14 07/11/22 08:00 BP 101/64 07/11/22 08:00 Pulse Ox 96 07/11/22 08:00 O2 Del Method 07/11/22 08:00 O2 Flow Rate 0 07/07/22 23:59 Results & Data ([facility]) Laboratory Results Laboratory Results - last 24 hr 07/10/22 20:55 SARS-CoV-2, RNA, NAAT NEGATIVE Current Inpatient Medications Current Inpatient Medications: Current Inpatient Medications Famotidine 20 mg/ Syringe 5 mls @ 2.5 mls/min IV Q12 [place] Stop: 08/07/22 11:29 Last Admin: 07/11/22 09:09 Dose: 2.5 mls/min Polyethylene Glycol (Polyethylene (Miralax) 17 Gm Pack) 17 gm PO DAILY PRN PRN Reason: Constipation Stop: 08/07/22 13:01 (1) Suicide attempt by multiple drug overdose Encounter type: initial encounter Qualified Code(s): T50.912A - Poisoning by multiple unspecified drugs, medicaments and biological substances, intentional self-harm, initial encounter
--- NOTE | 2022-07-11 13:07 | Hospitalist Progress Note ---
Date of Service July 11, 2022 Assessment & Plan (1) Major depression: Plan: Pari is a 21-year-old female with a past medical history of major depression who presents to the ER after a intentional medication overdose with suicidal intention. She took 60x 25 mg hydroxyzine, 6 fluoxetine tablets in addition to alcohol with an admitting medical alcohol level of 260.2 overnight 07/07-. Was initially medically cleared point poison control and was pending behavioral health placement, however repeat EKG showed lengthening QT and has been recommended for telemetry monitoring and magnesium supplementation with continued medical observation. Intentional Overdose with Qtp, active SI 60x 25 mg hydroxyzine, 6 fluoxetine, alcohol 07/07. Ingestion approximately 8:30 PM - Initial EKG 07/07/2022 at 2346 hrs.: Normal sinus rhythm. QTc 461. No ST segment changes. - Repeat EKG 07/08/2022 at 554 hours: Normal sinus rhythm, QTC 499. 2 g IV ordered Magnesium pending Potassium repleted Discussed with poison control. Recommended completing magnesium as above with follow-up EKG and level -QT has shortened, patient is now medically cleard and stable for transfer Suicide precautions Patient continues to endorse active suicidality/SI, 302 has been deposited by psych Continue 1:1 sitter, patient not allowed to sign out AMA -Appreciate psych DVT prophylaxis: Low risk Diet: Safe tray CODE STATUS: Full code Disposition: medically stable for transfer to inpatient psych (2) Intentional overdose: (3) QT prolongation: Plan: normalized Plan U when accepted Admission and Anticipated Discharge Date Admission Date: July 08, 2022 Subjective patient seen and examined, feels sleepy, denies chest pain or SOB Review of Systems Review of Systems: All systems reviewed are negative, apart from the ones contained in the history. Physical Exam Physical Exam: The patient is awake, alert and oriented 3, well developed and well nourished, normocephalic and atraumatic, lying in bed and in no acute distress. HEENT--PERRL, EOMI, mucous membranes and oropharynx mildly dry Neck--supple. No JVD. No bruits. Thyroid normal, trachea midline, no adenopathy. Heart--normal S1 and S2. No murmurs, rubs or gallops. Lungs--clear bilaterally, no respiratory distress, no accessory muscle use. Abdomen--normal bowel sounds and soft. Mild epigastric and left sided abdominal pain Extremities--no cyanosis or clubbing. No edema. Dermatologic--normal skin turgor, normal color, no abnormal lymph nodes, no rash. Neurologic--cranial nerves II through XII grossly intact. Rheumatologic--normal range of motion. Psychiatric--normal affect. Results & Data Results & Data ([facility]) Vital Signs (Past 12 Hours) Vital Signs Temp Pulse Resp BP BP Pulse Ox O2 Del Method 07/11/22 08:00 97.9 F 56 L 14 101/64 96 Room Air 07/11/22 02:36 97.7 F 43 L 16 97/89 L 94 Room Air PG Care Time/CCT Total # of Minutes Spent Total Time Spent with Patient: Total time spent is greater than 50% in coordination of care (as documented) at patient's floor/unit and/or counseling patient: Coding Level of Care Code 68926 Subseq Hosp Care Lvl 2 Diagnoses Major depression F32.9 Intentional overdose T50.902A QT prolongation R94.31 Time Spent (min) 35
--- NOTE | 2022-07-12 00:46 | Communication Note ---
Date of Service: July 12, 2022 Messaged about loss of IV access and if could switch from IV to PO famotidine. Patient was on famotidine IV 20mg BID. I will discontinue at this time as it is unclear the indication (aspiration concerns, stress ulcer prophylaxis, reflux?). QTc has improved, but this medication can contribute to prolonging. Check QTc in AM.
--- NOTE | 2022-07-12 12:16 | Hospitalist Progress Note ---
Date of Service July 12, 2022 Assessment & Plan (1) Major depression: Plan: Pari is a 21-year-old female with a past medical history of major depression who presents to the ER after a intentional medication overdose with suicidal intention. She took 60x 25 mg hydroxyzine, 6 fluoxetine tablets in addition to alcohol with an admitting medical alcohol level of 260.2 overnight 07/07-. Was initially medically cleared point poison control and was pending behavioral health placement, however repeat EKG showed lengthening QT and has been recommended for telemetry monitoring and magnesium supplementation with continued medical observation. Intentional Overdose with Qtp, active SI 60x 25 mg hydroxyzine, 6 fluoxetine, alcohol 07/07. Ingestion approximately 8:30 PM - Initial EKG 07/07/2022 at 2346 hrs.: Normal sinus rhythm. QTc 461. No ST segment changes. - Repeat EKG 07/08/2022 at 554 hours: Normal sinus rhythm, QTC 499. 2 g IV ordered Magnesium pending Potassium repleted Discussed with poison control. Recommended completing magnesium as above with follow-up EKG and level -QT has shortened, patient is now medically cleard and stable for transfer Suicide precautions Patient continues to endorse active suicidality/SI, 302 has been deposited by psych Continue 1:1 sitter, patient not allowed to sign out AMA -Patient has been accepted at a facility -Appreciate psych DVT prophylaxis: Low risk Diet: Safe tray CODE STATUS: Full code Disposition: medically stable for transfer to inpatient psych (2) Intentional overdose: (3) QT prolongation: Plan: normalized Plan Patient has been accepted at a psych facility, but needs to be off tele for 24 hrs Admission and Anticipated Discharge Date Admission Date: July 08, 2022 Subjective patient seen and examined, feels sleepy, denies chest pain or SOB Review of Systems Review of Systems: All systems reviewed are negative, apart from the ones con tained in the history. Physical Exam Physical Exam: The patient is awake, alert and oriented 3, well developed and well nourished, normocephalic and atraumatic, lying in bed and in no acute distress. HEENT--PERRL, EOMI, mucous membranes and oropharynx mildly dry Neck--supple. No JVD. No bruits. Thyroid normal, trachea midline, no adenopathy. Heart--normal S1 and S2. No murmurs, rubs or gallops. Lungs--clear bilaterally, no respiratory distress, no accessory muscle use. Abdomen--normal bowel sounds and soft. Mild epigastric and left sided abdominal pain Extremities--no cyanosis or clubbing. No edema. Dermatologic--normal skin turgor, normal color, no abnormal lymph nodes, no rash. Neurologic--cranial nerves II through XII grossly intact. Rheumatologic--normal range of motion. Psychiatric--normal affect. Results & Data Results & Data ([facility]) Vital Signs (Past 12 Hours) Vital Signs Temp Pulse Resp BP BP Pulse Ox O2 Del Method 07/12/22 11:04 98.1 F 51 L 17 100/69 95 Room Air 07/12/22 07:00 98.1 F 43 L 16 95/57 L 97 Room Air 07/12/22 03:30 98.2 F 57 L 17 100/64 96 Room Air PG Care Time/CCT Total # of Minutes Spent Total Time Spent with Patient: Total time spent is greater than 50% in coordination of care (as documented) at patient's floor/unit and/or counseling patient: Coding Level of Care Code 36992 Subseq Hosp Care Lvl 2 Diagnoses Major depression F32.9 Intentional overdose T50.902A QT prolongation R94.31 Time Spent (min) 35
--- NOTE | 2022-07-12 13:27 | Electrocardiogram Report ---
Test Reason : Blood Pressure : / mmHG Vent. Rate : 044 BPM Atrial Rate : 044 BPM P-R Int : 168 ms QRS Dur : 090 ms QT Int : 500 ms P-R-T Axes : 066 084 053 degrees QTc Int : 427 ms Marked sinus bradycardia Early repolarization Abnormal ECG When compared with ECG of 11-JUL-2022 06:01, No significant change was found Confirmed by Connor Pollard ([id number] on 07/12/2022 1:26:48 PM Referred By: REFERRED SELF Confirmed By:Connor Pollard
--- NOTE | 2022-07-13 13:50 | Electrocardiogram Report ---
Test Reason : Blood Pressure : / mmHG Vent. Rate : 045 BPM Atrial Rate : 045 BPM P-R Int : 156 ms QRS Dur : 094 ms QT Int : 482 ms P-R-T Axes : 000 108 139 degrees QTc Int : 416 ms Sinus bradycardia Rightward axis Early repolarization Otherwise normal ECG for this age When compared with ECG of 12-JUL-2022 06:29, No significant change was found Confirmed by Connor Pollard ([id number] on 07/13/2022 1:49:48 PM Referred By: REFERRED SELF Confirmed By:Connor Pollard
--- NOTE | 2022-07-13 14:01 | Discharge Summary ---
Date of Service July 13, 2022 Admission HPI Per Admitting Provider Pari is a 21-year-old female with a past medical history of major depression who presents to the ER after a intentional medication overdose with suicidal intention. She took 60x 25 mg hydroxyzine, 6 fluoxetine tablets in addition to alcohol with an admitting medical alcohol level of 260.2 overnight 07/07-. Was initially medically cleared point poison control and was pending behavioral health placement, however repeat EKG showed lengthening QT and has been recommended for telemetry monitoring and magnesium supplementation with continued medical observation. Patient reports that she took 7-8 shots of vodka, 60 hydroxyzine, and 6 Zoloft tabs around 8:30 PM on 07/07/2022. She reported suicidal intention with chronic depression, and noted she was feeling worthless and did not want to be alive. Prior history of major depressive disorder with inpatient admission 06/04/2022 - 06/08/2022. At that time noted to have low acute risk of stroke, but moderate chronic risk of stroke due to impulsivity, prior attempts, history of self-harm, and mood disorder but with good protective factors including family/friends. She was discharged with follow-up to psychiatry through [facility], [facility], and was continued on hydroxyzine twice daily as needed and sertraline 50 mg p.o. nightly. Lexapro was discontinued at that time Initial EKG 07/07/2022 at 2346 hrs.: Normal sinus rhythm. QTc 461. No ST segment changes. Repeat EKG 07/08/2022 at 554 hours: Normal sinus rhythm, QTC 499. In the ER patient did receive 2 L NSS for hypotension. After QT was found to be lengthened magnesium and potassium supplementation were also ordered. She was signed out to the day ER provider who subsequently signed case out to hospitalist provider for admission. At time of admission there is no leukocytosis, hemoglobin is 12.5, sodium is 143, potassium 3.3, glucose is normal, magnesium was pending, COVID-negative. No imaging performed, patient is awake and guarding airway. M-4 hours Last week first week back to [facility]. MDD for 'a very long time' Feels anxiety as a wave of depressive mood which plummets and had strong feelings of worthlessness Support from mother who is with her in the ER and in her twin sister. Roommate Claire came to check on her and found that she had taken hydroxyzine, zoloft, and alcohol. Roommate made her throw Had not expressed SI, but sister was worried Before last month had not had any suicide attempts but February 2021 Davis was drinking and had told her twin sister that she wanted to kill herself, but did not have an attempt at that time. Was seen by a medical center and was referred to crisis at the time and was connect to video therapy. Saw Uziel Bertrand ACCOUNTING GENERALIST for counseling and had started zoloft at that time but never really took it. Looking at inpatient faciliites specializing in depression after this second attempt. Trying to find a center with matched age group, [facility] was a older age group which was not therapeutic for her. History from [facility] is limited as she is somnolent and withdrawn, however at bedside she awakens easily to voice, is guarding airway, converses appropriately before going back to sleep. Does endorse some slight shortness of breath without cough, is not sure if she could have aspirated. Medical History: Reviewed Medications: Reviewed Surgical History: Reviewed Allergies: Reviewed Social History: Social ETOH. Code Status: Full code Principal Diagnosis intentional drug overdose Discharge Exam The patient is awake, alert and oriented 3, well developed and well nourished, normocephalic and atraumatic, lying in bed and in no acute distress. HEENT--PERRL, EOMI, mucous membranes and oropharynx mildly dry Neck--supple. No JVD. No bruits. Thyroid normal, trachea midline, no adenopathy. Heart--normal S1 and S2. No murmurs, rubs or gallops. Lungs--clear bilaterally, no respiratory distress, no accessory muscle use. Abdomen--normal bowel sounds and soft. Mild epigastric and left sided abdominal pain Extremities--no cyanosis or clubbing. No edema. Dermatologic--normal skin turgor, normal color, no abnormal lymph nodes, no rash. Neurologic--cranial nerves II through XII grossly intact. Rheumatologic--normal range of motion. Psychiatric--normal affect. Discharge Data Allergies Allergy/AdvReac Type Severity Reaction Status Date / Time No Known Allergies Allergy Verified 06/03/22 13:31 Consultations 07/08/22 09:52 ED Decision to Admit Stat 07/08/22 13:02 Consult Psychiatry Routine 07/13/22 07:48 Consult Cardiology Routine Hospital Course (1) Major depression: Pari is a 21-year-old female with a past medical history of major depression who presents to the ER after a intentional medication overdose with suicidal intention. She took 60x 25 mg hydroxyzine, 6 fluoxetine tablets in addition to alcohol with an admitting medical alcohol level of 260.2 overnight 07/07-. Was initially medically cleared point poison control and was pending behavioral health placement, however repeat EKG showed lengthening QT and has been recommended for telemetry monitoring and magnesium supplementation with continued medical observation. Intentional Overdose with Qtp, active SI 60x 25 mg hydroxyzine, 6 fluoxetine, alcohol 07/07. Ingestion approximately 8:30 PM - Initial EKG 07/07/2022 at 2346 hrs.: Normal sinus rhythm. QTc 461. No ST segment changes. - Repeat EKG 07/08/2022 at 554 hours: Normal sinus rhythm, QTC 499. 2 g IV ordered Magnesium pending Potassium repleted Discussed with poison control. Recommended completing magnesium as above with follow-up EKG and level -QT has shortened, patient is now medically cleard and stable for transfer Suicide precautions Patient continues to endorse active suicidality/SI, 302 has been deposited by psych Continue 1:1 sitter, patient not allowed to sign out AMA -Patient has been accepted at a facility -Appreciate psych DVT prophylaxis: Low risk Diet: Safe tray CODE STATUS: Full code Disposition: medically stable for transfer to inpatient psych (2) Intentional overdose: (3) QT prolongation: normalized Plan Patient has been accepted at a psych facility, but needs to be off tele for 24 hrs Total Time Total Time Spent Total Time Spent (In Minutes): 35 Discharge Plan Discharge Items Patient Disposition: Transfer Behavioral Health Fac Reason For Visit: INTENTIONAL OVERDOSE, 302, QTP Discharge Diagnosis: intentional drug overdose Activity: Resume your previous activity Non-emergency contact: Primary Care Provider and Psychiatrist Call non-emergency contact if: you have any medication questions [facility]-up/Referrals: [facility] [Primary Care Provider] - Diet: Regular Addtl Attending Provider Instructions: please make appointment to follow up with your psychiatrist Pending Studies at Discharge: No Stand-Alone Forms: My [facility] Medications and DC Order Prescriptions: Continued hydroxyzine HCl 25 mg Tablet 25 mg PO BID PRN (Reason: anxiety/insomnia) 30 Days Qty: 60 0RF sertraline 50 mg Tablet 50 mg PO HS 30 Days Qty: 30 0RF Discharge Orders: Discharge Order (Routine); Ordered 07/13/22 Ordered By: Rhiannon Biswas Admission Data Admit Date/Time: 07/08/22 10:32 Attending Provider: Rhiannon Biswas Admit Provider: Twin Pleitez Primary Care Provider: [facility] Other Providers: Twin Pleitez ; Wendy Caldera ; Renetta Tomas ; Vira Little ; Connor Pollard Coding Level of Care Code D/C DAY MANAGEMENT >30 MINS Diagnoses Major depression F32.9 Intentional overdose T50.902A QT prolongation R94.31 Time Spent (min) 35
--- NOTE | 2022-07-14 07:55 | Electrocardiogram Report ---
Test Reason : Blood Pressure : / mmHG Vent. Rate : 044 BPM Atrial Rate : 044 BPM P-R Int : 174 ms QRS Dur : 092 ms QT Int : 488 ms P-R-T Axes : 059 073 045 degrees QTc Int : 417 ms Marked sinus bradycardia Minor ST elevation, most consistent with repolarization variant Abnormal ECG When compared with ECG of 12-JUL-2022 16:23, No significant change Confirmed by Stefan Freitas ([id number]) on 07/14/2022 7:54:48 AM Referred By: REFERRED SELF Confirmed By:Stefan rFeitas
== END 2022-07-13 11:55 | DRG 918 ==
LOC: ED 23:35 → SUATTDRO 07-08 10:32 → EDINP 07-08 10:32 → 2S 07-08 12:25 → 3W 07-12 16:02